=== PATIENT | male | born 1960 | race Caucasian/White ===

== ENCOUNTER → 2018-03-16 | Outpatient (CLI) | payer BC ==
[2018-03-16 15:32] LABS: HCT 44.9 % (39.0-53.0); HGB 15.1 gm/dL (13.0-17.5); MCH 29.7 pg (25.0-35.0); MCHC 33.6 g/dL (31.0-37.0); MCV 88.5 fL (80.0-100.0); Mean Platelet Volume 6.6; Platelet Count 273 k/uL (150-450); RBC 5.07 m/uL (4.30-5.90); RDW 13.1 % (11.5-15.5); WBC 8.4 k/uL (3.8-10.6)
[2018-03-16 15:33] LABS: Appearance,Urine Clear (Clear); Bilirubin,Urine Negative (Negative); Blood,Urine Negative (Negative); Color,Urine Yellow; Glucose,Urine (UA) Negative (Negative); Ketones,Urine Negative (Negative); Leukocyte Esterase,Urine Negative (Negative); Nitrite,Urine Negative (Negative); PH, Urine 5.5 (5.0-8.0); Protein,Urine Negative (Negative); Specific Gravity,Urine 1.022 (1.001-1.035); Urobilinogen,Urine <2.0 mg/dL (<2.0)
[2018-03-16 15:37] LABS: Partial Thromboplastin Time 23.6 sec (22.0-30.0); Prothrombin Time 9.9 sec (9.0-12.0)
[2018-03-16 15:55] LABS: ALT 33 U/L (21-72); AST 25 U/L (17-59); Albumin 4.1 g/dL (3.5-5.0); Alkaline Phosphatase 78 U/L (38-126); Anion Gap 11 mmol/L; Blood Urea Nitrogen 21 mg/dL (9-20); Calcium 9.4 mg/dL (8.4-10.2); Carbon Dioxide 30 mmol/L (22-30); Chloride 102 mmol/L (98-107); Glucose 135 mg/dL (74-99); Potassium 3.9 mmol/L (3.5-5.1); Sodium 143 mmol/L (137-145); Total Bilirubin 0.4 mg/dL (0.2-1.3); Total Protein 7.2 g/dL (6.3-8.2)
== END | disposition home or self-care (01) ==
LOC: LABPAT 14:20
PROVIDERS: ATTEND Orthopaedic Surgery
DX: Z01.812 Encounter for preprocedural laboratory examination (principal)
CPT/HCPCS: 36415; 80053; 81003; 85027; 85610; 85730; 87070

== ENCOUNTER 2018-04-05 05:37 | Inpatient (IN) | payer BC ==
[2018-03-30 12:14] VITALS: BMI 41.3
[~2018-04-05 05:37] MED LIST: ACETAMINOPHEN TAB 500 MG TAB PO ONE; ONDANSETRON 4 MG/2 ML VIAL IVP ONE; TRANEXAMIC ACID 1,000 MG in SODIUM CHLORIDE 0.9% 50 ML IVPB ONE; VANCOMYCIN 2,000 MG in SODIUM CHLORIDE 0.9% 500 ML 500 ML IVPB ONE
[2018-04-05] MEDS ORDERED: MIDAZOLAM 2 MG/2 ML VIAL IV PRN (05:55)
[2018-04-05] MEDS ORDERED: SCOPOLAMINE 1.5MG/72HR PATCH TRANSDERM ONE (05:55)
[2018-04-05] MEDS ORDERED: DEXAMETHASONE SOD PHOSPHATE 10 MG/ML 1 ML VIAL IV ONE (05:55)
[2018-04-05] MEDS ORDERED: LACTATED RINGERS 1,000 ML IV SCH (05:55)
[2018-04-05 06:18] VITALS: RESP 16
[2018-04-05] MEDS ORDERED: LIDOCAINE 1% 20 ML VIAL (10MG/ML) FOR IV START INTRADERMA ONE (06:27)
[2018-04-05] MEDS ORDERED: ROPIVACAINE 246.25 MG, EPINEPHrine 0.5 MG, KETOROLAC 30 MG, cloNIDine HCL/PF 80 MCG, WA... MISCELLANE ONE ×5 (09:01)
[2018-04-05] MEDS ORDERED: fentaNYL (PF) 50 MCG/ML 2 ML AMP ONE (09:05)
[2018-04-05] MEDS ORDERED: PROPOFOL 10 MG/ML 20 ML VIAL IV ONE (09:05)
[2018-04-05] MEDS ORDERED: SODIUM CHLORIDE 0.9% 100 ML BAG ONE (09:05)
[2018-04-05] MEDS ORDERED: MIDAZOLAM 2 MG/2 ML VIAL ONE (09:05)
[2018-04-05] MEDS ORDERED: TRANEXAMIC ACID 1,000 MG/10 ML VIAL ONE (09:05)
[2018-04-05] MEDS ORDERED: ceFAZolin 3,000 MG in SODIUM CHLORIDE 0.9% IRRIGATIO 3,000 ML IRRIGATION ONE (09:15)
--- NOTE | 2018-04-05 11:11 | P.OP ---
Date of Procedure: 04/05/18 Procedure(s) Performed: PREOPERATIVE DIAGNOSIS: Right knee severe osteoarthritis with mild genu varum POSTOPERATIVE DIAGNOSIS: Right knee severe osteoarthritis with mild genu varum OPERATION: Right knee cemented total replacement arthroplasty. ANESTHESIA: Spinal ESTIMATED BLOOD LOSS: 100 ml. MAIL TRUCK DRIVER: Stefanie Toledo PA-C (assistance with: patient positioning, retraction, exposure, hemostasis, leg positioning, implantation, irrigation, closure, dressing) COMPLICATIONS: None apparent. COMPONENTS IMPLANTED: Persona system from [employer] INDICATIONS: Mr. Coley is a 57-year-old male with a history of right knee osteoarthritis. The patient's knee is end-stage, and conservative management has failed. The operation of knee replacement has been discussed at length in the office, as well as potential risks and complications. These are inclusive of, but not limited to: bleeding, infection, scarring, discomfort, blood vessel and nerve damage, need for further surgery, failure to relieve symptoms, persistence, recurrence, or worsening of problems, loosening, dislocation, wear , blood clot, pulmonary embolism, , gait dysfunction, stiffness, and other risks as discussed in the office. The patient elects to proceed and the consent form has been signed. PROCEDURE: The patient was taken to the operating room and positioned on the operating room table in the supine position. Anesthesia was initiated. Care was taken to make sure that all pressure points were adequately padded. The operative lower extremity was prepped and draped in the usual aseptic fashion using ChloraPrep. Ioban drape was used for the case and the patient received intravenous antibiotics within one hour of the incision. A pneumotourniquet and leg varela were used for the case. The limb was exsanguinated with an Esmarch bandage and the tourniquet was inflated to 350 mmHg. Time-out was called confirming the patient's identity, side, procedure and administration of antibiotics and tranexamic acid. The patient had a history of MRSA previous infection and therefore vancomycin infusion was started 2 hours prior to the procedure. The incision was then created midline directly over the knee, carried down through skin and into the subcutaneous tissues and down to fascia. Full thickness subcutaneous medial flap was developed. Medial parapatellar arthrotomy was performed and the interior of the knee was inspected. There was end-stage osteoarthritis of the knee with a mild to moderate genu varum type deformity. The fat pad was excised and proximal medial release on the tibia was completed using meticulous dissection and a curved osteotome. The anterior cruciate ligament was taken down. Note was made of significant attrition of the anterior and significant degenerative appearance of the cruciate ligaments. The exposure was excellent. The knee was flexed 90 degrees and the patella was subluxed and retracted laterally. A spot was chosen on the femur approximately 1 cm anterior to the posterior cruciate ligament insertion and an intramedullary hole was created within the femur. The intramedullary guide was then set to 5 degrees of valgus. The distal cutting block was attached and pinned into position. An appropriate amount of distal femoral resection was set. The oscillating saw was then used to make the distal femoral cut. This cut was confirmed to be flat with the flat end of an osteotome. The retractors were placed around the tibia and the tibial surface was addressed. The angle and depth of resection was adjusted using an extramedullary cutting guide. The guide had a built-in 3 degree posterior slope cut. Once the cutting guide was adjusted appropriately and in line with the axis of the tibia and confirmed to be in good position in relation to the second metatarsal and transmalleolar axis, the tibial cut was then created with protection of the posterior neurovascular structures and the collateral ligaments. The tibial cut surface was removed and sized. Femoral sizing was then accomplished using anterior referencing. Care was taken to analyze the posterior condyles for signs of deficiency or severe wear, and adjustments to the guide were made, as appropriate. 3 degree external rotation pins were placed. The cutting jig for the femur was applied to these pins. The planned cuts were further analyzed prior to performing them with the oscillating saw. No femoral notching was produced. Bone fragments were removed and the cut surfaces were finished, as necessary, with a reciprocating saw. Spacer block technique was then used to confirm that the flexion and extension gaps were equal. Soft tissue releases and adjustment of the tibial and/or femoral cuts were made, as necessary, until the gaps were equal. This included release of the posterior cruciate ligament, which was excessively tight in this patient. The femur was then further finished for a posterior cruciate ligament substituting component. Patellar resurfacing was performed using a reamer. The size of the required patellar component was estimated and the patellar surface was then reamed down to a residual thickness which would recreate the [place] thickness with the component. The exact placement of the patellar component was adjusted for position based on preoperative x-rays and intraoperative findings. Prior to placing trial components, anesthetic solution consisting of ropivicaine with epinephrine, ketorolac, and clonidine was injected carefully and methodically in a grid pattern using aspiration technique into the soft tissue around the knee circumferentially, starting with the deeper tissues first and progressing to fascia, and then finally the skin/subcutaneous tissue. Particular care was taken when injecting the posterior capsule. The trial components were inserted. The tibial tray was allowed to self center and the patella was noted to track very well. The position of the tibial component was marked and the tibia was then finished for a stemmed tibial component. Antibiotic-containing cement containing tobramycin was mixed on the back table and applied to the final components. Trial components were removed and the cut surfaces of the bone were pulse lavaged thoroughly and dried. Cement was then applied to the tibial surface and pressurized into the surface using finger pressurization technique. The tibial component was then applied and excess cement was removed after it was impacted securely and noted to be flush with the cut surface. In similar fashion, the cement was applied to the cut femoral surface, pressurized in using finger pressurization and the component was impacted into place. Excess cement was removed. The polyethylene spacer was then implanted and locked into position. The patellar component was then applied in similar technique and a patellar clamp was used to hold the patella in place as the cement hardened. Once the cement had fully hardened, the knee was reinspected. Any other cement extrusion was removed and final kinematic testing showed range of motion from 0 to 130 degrees with excellent stability, both medially and laterally and appropriate alignment of the leg. Patellar tracking was excellent. The knee was then thoroughly pulse lavaged with normal saline. The tourniquet was deflated and hemostasis was obtained with electrocautery and IV tranexamic acid, 1 g given at the start of the operation and 1 g at the start of closure. Closure was with #2 Ethibond in the fascia/capsule and supplemented with #2 Quill, 2-0 Vicryl suture was used for the subcutaneous tissues and 3-0 Quill for the skin. Dermabond/Steri-Strips were then applied. A lightly compressive dressing was applied using Webril and an Rogers wrap. The patient was then transferred to stretcher and taken to the recovery room in stable condition. Sponge and needle counts were correct.
[2018-04-05] MEDS ORDERED: MAGNESIUM HYDROXIDE 2,400 MG/10 ML CUP PO PRN (11:32)
[2018-04-05] MEDS ORDERED: NALOXONE 0.4 MG/ML 1 ML VIAL IV PRN (11:32)
[2018-04-05] MEDS ORDERED: BISACODYL 10 MG SUPP RECTAL PRN (11:32)
[2018-04-05] MEDS ORDERED: HYDROmorphone 1 MG/ML 1 ML SYRINGE IVP PRN ×3 (11:32)
[2018-04-05] MEDS ORDERED: TEMAZEPAM 15 MG CAP PO PRN (11:32)
[2018-04-05] MEDS ORDERED: NA PHOS,M-B/NA PHOS,DI-BA 133 ML ENEMA RECTAL PRN (11:32)
[2018-04-05] MEDS ORDERED: DIAZEPAM 5 MG TAB PO PRN (11:32)
[2018-04-05] MEDS: HYDROmorphone 0.5 MG/0.5 ML SYRINGE IVP PRN ×2 (11:40→11:56)
[2018-04-05] MEDS: LACTATED RINGERS 1,000 ML IV SCH ×2 (12:07→23:10)
--- NOTE | 2018-04-05 12:14 | XR ---
Limited right knee HISTORY: Status post right knee arthroplasty 2 views of the right knee. Patient is status post right knee arthroplasty. There is anatomic alignment. Lucency in the soft tiss ues is compatible with postop state. IMPRESSION: Orthopedic follow-up.
[2018-04-05] MEDS: HYDROcodone/APAP 7.5-325MG 1 EACH TAB PO PRN ×2 (15:22→22:43)
[2018-04-05] MEDS ORDERED: ceFAZolin IN SWFI 2 GM/20 ML SYRINGE IVP SCH (16:00)
[2018-04-05] MEDS ORDERED: WARFARIN 7.5 MG TAB PO ONE (18:00)
[2018-04-05] MEDS ORDERED: VANCOMYCIN 2,000 MG in SODIUM CHLORIDE 0.9% 500 ML 500 ML IVPB ONE (18:00)
[2018-04-05] MEDS ORDERED: METOPROLOL TARTRATE 50 MG TAB PO SCH (21:00)
[2018-04-05] MEDS ORDERED: SENNOSIDES-DOCUSATE SODIUM 1 EACH TAB PO SCH (21:00)
[2018-04-05] MEDS: METOPROLOL 100 MG PO SCH (21:05)
--- NOTE | 2018-04-05 23:45 | CONS ---
CONSULTATION DATE OF CONSULTATION: April 05, 2018. REASON FOR CONSULTATION: Medical management requested by Dr. Mancia. CONSULTATION: This is a very pleasant 57-year-old patient of Dr. Gruber. Chronic stable medical conditions include hypertension, obstructive sleep apnea, kidney stones. The patient did undergo right total knee arthroplasty. Pain is controlled with medications. No nausea, vomiting. Denies any cardiac history. Sitting up. No dizziness. No lightheadedness. REVIEW OF SYSTEMS: CONSTITUTIONAL: None. HEENT: None. RESPIRATORY: None. CARDIOVASCULAR: None. GASTROINTESTINAL: None. GENITOURINARY: None. MUSCULOSKELETAL: Arthritic pain in many joints. DERMATOLOGICAL: None. HEMATOLOGICAL: None. LYMPHATICS: None. PSYCHIATRIC: None. NEUROLOGICAL: None. PAST MEDICAL HISTORY: Hypertension, osteoarthritis, obstructive sleep apnea uses CPAP, kidney stones. PAST SURGICAL HISTORY: Hernia repair, right knee arthroscopic, right carpal tunnel release, inguinal hernia times two. SOCIAL HISTORY: No smoking. Alcohol occasionally. . 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 FAMILY HISTORY: Skin cancer. HOME MEDICATIONS: 1. Maxzide 37.5/25 1 tablet p.o. daily. 2. Lopressor 200 mg p.o. b.i.d. 3. Prinivil 20 mg p.o. daily. 4. Zyrtec 10 mg p.o. daily. ALLERGIES: None. PHYSICAL EXAMINATION: VITAL SIGNS: Temperature 98.1, pulse 84, respiratory rate 16, blood pressure 145/80, pulse ox 95% on room air. GENERAL APPEARANCE: Well built. BMI 41.3. Sitting up in a chair. Comfortable. EYES: Pupils equal. Conjunctivae normal. HEENT: External appearance of nose and ears normal. Oral cavity normal. NECK: JVD not raised. Mass not palpable. RESPIRATORY: Effort normal. LUNGS are clear. CARDIOVASCULAR: 1st and second sounds normal. No edema. ABDOMEN: Soft, nontender. Liver and spleen not palpable. LYMPHATICS: No lymph nodes palpable in the neck and axilla. PSYCHIATRY: Alert and oriented x3. Mood and affect normal. NEUROLOGICAL: Pupils equal. Cranial nerves grossly intact. Power and sensation grossly intact. MUSCULOSKELETAL: Evidence of osteoarthritis especially in the hands and knees. The right knee in a dressing. INVESTIGATIONS: Blood work from March 16, 2018 shows a white count 8.4, hemoglobin 15.1, platelets 273. Potassium 3.9, BUN 21, creatinine 0.84. ASSESSMENT: 1. Right total knee arthroplasty. 2. Primary osteoarthritis multiple joints bilaterally. 3. Essential hypertension. 4. Obstructive sleep apnea uses CPAP machine. 5. Urolithiasis, currently asymptomatic. 6. Morbid obesity BMI 41.3. PLAN: Home medications are resumed. Patient getting prophylactic IV cefazolin and DVT prophylaxis per Dr. Mancia. The patient should see a dietitian for weight loss measures and should follow up with Dr. Gruber upon discharge. Care was discussed with the patient. Questions were answered. Thank you Dr. Mancia. Copy to Dr. Gruber. MMODL / IJN: [id number] /
[2018-04-06] MEDS: HYDROcodone/APAP 7.5-325MG 1 EACH TAB PO PRN ×3 (05:11→11:14)
[2018-04-06] MEDS: LACTATED RINGERS 1,000 ML IV SCH (05:18)
[2018-04-06] MEDS: METOPROLOL 100 MG PO SCH (07:26)
[2018-04-06 08:10] VITALS: BP 128/61; PULSE 57; TEMP 99
[2018-04-06 08:10] LABS: Basophils % (A) 0 %; Eosinophils % (A) 0 %; HCT 39.7 % (39.0-53.0); Lymphocytes # (A) 1.6 k/uL (1.0-4.8); Lymphocytes % (A) 16 %; MCH 29.2 pg (25.0-35.0); MCHC 32.7 g/dL (31.0-37.0); MCV 89.4 fL (80.0-100.0); Mean Platelet Volume 6.9; Monocytes # (A) 0.7 k/uL (0-1.0); Monocytes % (A) 7 %; Neutrophils # (A) 7.7 k/uL (1.3-7.7); Neutrophils % (A) 75 %; Platelet Count 222 k/uL (150-450); RBC 4.44 m/uL (4.30-5.90); RDW 13.1 % (11.5-15.5); WBC 10.2 k/uL (3.8-10.6)
[2018-04-06 08:21] LABS: INR 1.6 (<1.2); Prothrombin Time 15.2 sec (9.0-12.0)
[2018-04-06] MEDS ORDERED: TRIAMTERENE PO SCH (09:00)
[2018-04-06] MEDS ORDERED: LISINOPRIL 20 MG TAB PO SCH (09:00)
[2018-04-06] MEDS ORDERED: HCTZ PO SCH (09:00)
[2018-04-06] MEDS ORDERED: CETIRIZINE 10 MG PO SCH (09:00)
[2018-04-06] MEDS ORDERED: TRIAMTERENE-HCTZ 37.5-25MG 1 EACH TAB PO SCH (09:00)
[2018-04-06] MEDS ORDERED: MELOXICAM 7.5 MG TAB PO SCH (09:00)
[2018-04-06] MEDS ORDERED: LISINOPRIL 20 MG PO SCH (09:00)
--- NOTE | 2018-04-06 09:25 | P.DS ---
Providers Date of admission: 04/05/18 05:37 Expected date of discharge: 04/06/18 Attending physician: Damon Mancia Consults: 04/05/18 15:55 Consult Physician Urgent Consulting Provider: Moose Barajas Consult Reason/Comments: Medical management Do you want consulting provider notified?: Yes Primary care physician: Amos Gruber - Discharge Diagnosis(es) (1) Degenerative arthritis of right knee Current Visit: Yes Status: Acute (2) Status post total right knee replacement Current Visit: Yes Status: Acute Hospital Course: This is a 57-year-old male who was last seen with complaint of continued right knee pain. The patient has a known history of degenerative arthritis of the right knee and presents to discuss surgical options. After discussion and consideration the patient elects to proceed with total right knee arthroplasty. The patient is seen preoperatively by his primary care physician and cleared for surgery. The patient is admitted to [facility] for total right knee arthroplasty. The procedures performed without complication or sequelae. Patient is doing well postoperatively. Vital signs are stable at discharge. Labs are stable at discharge. the patient is ambulating well with walker with minimal assistance. The patient is discharged to home on postop day #1 pending medical clearance. Please see orders and refer to the [facility] rec for accurate list of medications. Patient Condition at Discharge: Good Plan - Discharge Summary Discharge Rx Participant: Yes New Discharge Prescriptions: New HYDROcodone/APAP 7.5-325MG [Delta 7.5-325] 1 - 2 tab PO Q4-6H PRN #50 tab PRN Reason: Pain Sennosides-Docusate Sodium [Senokot-S] 1 tab PO BID #60 tablet Warfarin [Coumadin] 2.5 mg PO DAILY #1 tab No Action Metoprolol Tartrate [Lopressor] 100 mg PO BID Triamterene-Hctz 37.5-25Mg [Maxzide-25] 1 tab PO DAILY Lisinopril [Prinivil] 20 mg PO DAILY Cetirizine HCl [Zyrtec] 10 mg PO DAILY Discharge Medication List Lisinopril [Prinivil] 20 mg PO DAILY 03/07/15 [History] Metoprolol Tartrate [Lopressor] 100 mg PO BID 03/07/15 [History] Triamterene-Hctz 37.5-25Mg [Maxzide-25] 1 tab PO DAILY 03/07/15 [History] Cetirizine HCl [Zyrtec] 10 mg PO DAILY 03/30/18 [History] HYDROcodone/APAP 7.5-325MG [Delta 7.5-325] 1 - 2 tab PO Q4-6H PRN #50 tab [Rx] Sennosides-Docusate Sodium [Senokot-S] 1 tab PO BID #60 tablet 04/06/18 [Rx] Warfarin [Coumadin] 2.5 mg PO DAILY #1 tab 04/06/18 [Rx] Follow up Appointment(s)/Referral(s): Stefanie Toledo, PAC [PHYSICIAN [employer]OTWE[employer] SALES REPRESENTATIVE] - 2 Weeks Ambulatory/Diagnostic Orders: Continuous Passive Motion (CPM) Machine [DME.AMB1] Time Frame: 3 Weeks, Facility : [facility], Location: Case Management Prothrombin Time INR [LAB.AMB] Location: None Selected Activity/Diet/Wound Care/Special Instructions: May bear wt as tolerated with walker. May shower if no drainage from incision. CPM 5-6h daily. Discharge Disposition: HOME WITH HOME HEALTH SERVICES
[2018-04-06] MEDS ORDERED: WARFARIN 5 MG TAB PO ONE (18:00)
== END 2018-04-06 14:12 | disposition home health service (06) | DRG 470 ==
LOC: 2ORMAIN 05:37 → 4SSUR 11:42
PROVIDERS: ADMIT Orthopaedic Surgery; ATTEND Orthopaedic Surgery
PROC: 0SRC0J9 Replacement of Right Knee Joint with Synthetic Substitute, Cemented, Open Approach (ICD-10-PCS; principal; 2018-04-05 09:00)
DX: M17.11 Unilateral primary osteoarthritis, right knee (principal); Z68.41 Body mass index [BMI] 40.0-44.9, adult; E66.01 Morbid (severe) obesity due to excess calories; G47.33 Obstructive sleep apnea (adult) (pediatric); I10 Essential (primary) hypertension; M21.161 Varus deformity, not elsewhere classified, right knee; N20.0 Calculus of kidney; Z80.8 Family history of malignant neoplasm of other organs or systems; Z86.14 Personal history of Methicillin resistant Staphylococcus aureus infection; Z87.442 Personal history of urinary calculi; Z79.899 Other long term (current) drug therapy; Z71.3 Dietary counseling and surveillance
CPT/HCPCS: 85025; 85610; 88300

== ENCOUNTER → 2018-04-15 | Outpatient (CLI) | payer BC ==
--- NOTE | 2018-04-15 10:55 | US ---
EXAMINATION TYPE: US venous doppler duplex LE RT DATE OF EXAM: 04/15/2018 10:46 AM COMPARISON: NONE CLINICAL HISTORY: I80.9,Phlebitis and thrombophlebitis. SIDE PERFORMED:Right Patient of large body habitus TECHNIQUE: The lower extremity deep venous system is examined utilizing real time linear array sonog perez with graded compression, doppler sonography and color-flow sonography. VESSELS IMAGED: External Iliac Vein (EIV) Common Femoral Vein Deep Femoral Vein Greater Saphenous Vein * Femoral Vein Popliteal Vein Small Saphenous Vein * Proximal Calf Veins (* superficial vessels) Right Leg: Negative for DVT PTV's and GSV also scanned per order. Results phoned to Ashly at office at 10:49 immediately following exam Grayscale, color doppler, spectral doppler imaging performed of the deep veins of the right lower ext remity. There is normal flow, compressibility, vascular waveforms. IMPRESSION: No ultrasound evidence for acute deep or superficial vein thrombus in the right lower ex tremity.
[2018-04-15 12:22] LABS: INR 1.1 (<1.2); Prothrombin Time 10.5 sec (9.0-12.0)
== END | disposition home or self-care (01) ==
LOC: RADUSWWP 10:11
PROVIDERS: ATTEND Orthopaedic Surgery
DX: M25.561 Pain in right knee (principal); M17.11 Unilateral primary osteoarthritis, right knee; M23.331 Other meniscus derangements, other medial meniscus, right knee; E66.9 Obesity, unspecified; Z96.651 Presence of right artificial knee joint
CPT/HCPCS: 85610

== ENCOUNTER → 2018-06-14 | Outpatient (CLI) | payer BC ==
--- NOTE | 2018-06-14 16:09 | XR ---
Right foot HISTORY: Pain and infection right great toe 3 views of the right foot 4 images No comparisons Soft tissue swelling may be present at the first digit, there is degenerative change at the interphal angeal joint, metatarsophalangeal joint of the first digit of the right foot. No evident periosteal r eaction to suggest osteomyelitis. Alignment and bone mineralization are maintained. Enthesophyte pres ent at the insertion of the Achilles tendon. IMPRESSION: Correlate for cellulitis. Osteoarthritis. Follow-up as indicated.
== END | disposition home or self-care (01) ==
LOC: RADXRMAIN 15:28
PROVIDERS: ATTEND Internal Medicine Infectious Disease
DX: M19.071 Primary osteoarthritis, right ankle and foot (principal)

== ENCOUNTER 2019-07-10 23:42 | Emergency (ER) | payer BC, OTHER ==
[2019-07-11 00:11] VITALS: TEMP 98
--- NOTE | 2019-07-11 00:44 | XR ---
EXAMINATION TYPE: XR chest 1V portable DATE OF EXAM: 07/11/2019 COMPARISON: NONE HISTORY: Chest pain TECHNIQUE: Single view FINDINGS: Heart and mediastinum are normal. Lungs are clear of infiltrate. There is no pleural effusi on. Bony thorax is intact. IMPRESSION: No active cardiopulmonary disease. Normal heart.
--- NOTE | 2019-07-11 00:48 | XR ---
EXAMINATION TYPE: XR pelvis AP view DATE OF EXAM: 07/11/2019 COMPARISON: NONE HISTORY: Pain TECHNIQUE: Single view FINDINGS: Pelvic ring is intact. Proximal femurs are intact. There is mild acetabular spurring. Sacro iliac joints are intact. There are numerous phleboliths in the pelvis. IMPRESSION: Mild spurring at the hip joints. No fracture seen.
[2019-07-11 00:53] LABS: Appearance,Urine Clear (Clear); Bilirubin,Urine Negative (Negative); Blood,Urine Negative (Negative); Color,Urine Light Yellow; Glucose,Urine (UA) Negative (Negative); Ketones,Urine Negative (Negative); Leukocyte Esterase,Urine Negative (Negative); Nitrite,Urine Negative (Negative); Protein,Urine Negative (Negative); Urobilinogen,Urine <2.0 mg/dL (<2.0)
[2019-07-11 00:55] LABS: Basophils # (A) 0.2 k/uL (0-0.2); Basophils % (A) 2 %; Eosinophils # (A) 0.2 k/uL (0-0.7); Eosinophils % (A) 2 %; HCT 49.2 % (39.0-53.0); HGB 15.9 gm/dL (13.0-17.5); Lymphocytes # (A) 1.2 k/uL (1.0-4.8); Lymphocytes % (A) 14 %; MCHC 32.3 g/dL (31.0-37.0); MCV 86.4 fL (80.0-100.0); Mean Platelet Volume 6.6; Monocytes # (A) 0.6 k/uL (0-1.0); Monocytes % (A) 7 %; Neutrophils # (A) 6.3 k/uL (1.3-7.7); Neutrophils % (A) 74 %; Platelet Count 377 k/uL (150-450); RBC 5.69 m/uL (4.30-5.90); RDW 13.4 % (11.5-15.5); WBC 8.6 k/uL (3.8-10.6)
[2019-07-11 01:04] LABS: ALT 34 U/L (4-49); AST 37 U/L (17-59); African American GFR (CKD) >90 (>60 ml/min/1.73 sqM); Albumin 4.3 g/dL (3.5-5.0); Alkaline Phosphatase 103 U/L (38-126); Anion Gap 8 mmol/L; Blood Urea Nitrogen 13 mg/dL (9-20); Calcium 9.3 mg/dL (8.4-10.2); Carbon Dioxide 32 mmol/L (22-30); Chloride 101 mmol/L (98-107); Glucose 159 mg/dL (74-99); Non-African American GFR(CKD) >90 (>60 ml/min/1.73 sqM); Potassium 4.5 mmol/L (3.5-5.1); Sodium 141 mmol/L (137-145); Total Bilirubin 0.4 mg/dL (0.2-1.3); Total Protein 7.8 g/dL (6.3-8.2)
[2019-07-11 01:12] LABS: INR 1.3 (<1.2); Prothrombin Time 12.9 sec (9.0-12.0)
[2019-07-11 01:13] LABS: Partial Thromboplastin Time 19.6 sec (22.0-30.0)
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
[2019-07-11] MEDS ORDERED: MORPHINE SULFATE 4 MG/ML SYRINGE IVP STA (01:20)
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
[2019-07-11] MEDS ORDERED: KETOROLAC 30 MG/ML 1 ML VIAL IVP STA (02:01)
[2019-07-11] MEDS ORDERED: ORPHENADRINE 30 MG/ML 2 ML VIAL IM STA (02:01)
[2019-07-11 03:24] VITALS: BP 151/79; PULSE 55; RESP 20
== END 2019-07-11 03:36 | disposition home or self-care (01) ==
LOC: EC 23:42
DX: M54.2 Cervicalgia (principal); M25.511 Pain in right shoulder; M25.512 Pain in left shoulder; M54.6 Pain in thoracic spine; R51 Headache; R01.1 Cardiac murmur, unspecified; I48.91 Unspecified atrial fibrillation; I10 Essential (primary) hypertension; G47.30 Sleep apnea, unspecified; Z88.2 Allergy status to sulfonamides; Z79.01 Long term (current) use of anticoagulants; Z79.899 Other long term (current) drug therapy; Z99.89 Dependence on other enabling machines and devices; V59.59XA Passenger in pick-up truck or van injured in collision with other motor vehicles in traffic accident, initial encounter; Y92.410 Unspecified street and highway as the place of occurrence of the external cause
CPT/HCPCS: 36415; 93005; 86900; 86901; 80053; 84484; 85025; 85610; 85730; 86850; 81003; 72170; 71045; 72125; 70450; 71260; 74177; 99285; 96374; 96375; 96372; J2270; J2360; J1885; Q9967

== ENCOUNTER 2020-09-18 05:36 | Day surgery (SDC) | payer BC, OTHER ==
[2020-09-12 11:14] VITALS: BMI 44.3
[~2020-09-18 05:36] MED LIST changes: -ACETAMINOPHEN TAB 500 MG TAB PO ONE; +DEXAMETHASONE SOD PHOSPHATE 4 MG/ML 1 ML VIAL IV ONE; +LACTATED RINGERS 1,000 ML IV SCH; +LIDOCAINE 1% (10MG/ML) FOR IV START INTRADERMA PRN; +MIDAZOLAM 2 MG/2 ML VIAL IV PRN; +Pre Op ABX Message 1 EACH MISC MISCELLANE ONE; -TRANEXAMIC ACID 1,000 MG in SODIUM CHLORIDE 0.9% 50 ML IVPB ONE; -VANCOMYCIN 2,000 MG in SODIUM CHLORIDE 0.9% 500 ML 500 ML IVPB ONE; +ceFAZolin 3 GM in SODIUM CHLORIDE 0.9% 100 ML IVPB PRN
[2020-09-18 06:48] LABS: Basophils % (A) 0 %; Eosinophils # (A) 0.2 k/uL (0-0.7); Eosinophils % (A) 2 %; HCT 44.4 % (39.0-53.0); HGB 15.4 gm/dL (13.0-17.5); Lymphocytes % (A) 21 %; MCH 29.7 pg (25.0-35.0); MCHC 34.8 g/dL (31.0-37.0); MCV 85.3 fL (80.0-100.0); Mean Platelet Volume 7.2; Monocytes # (A) 0.8 k/uL (0-1.0); Monocytes % (A) 8 %; Neutrophils # (A) 6.4 k/uL (1.3-7.7); Neutrophils % (A) 67 %; Platelet Count 248 k/uL (150-450); RBC 5.21 m/uL (4.30-5.90); RDW 13.3 % (11.5-15.5); WBC 9.6 k/uL (3.8-10.6)
[2020-09-18] MEDS ORDERED: ePHEDrine SULFATE/0.9% NACL/PF 50 MG/5 ML SYRINGE IV ONE (06:53)
[2020-09-18] MEDS ORDERED: fentaNYL (PF) 50 MCG/ML 2 ML AMP ONE (06:53)
[2020-09-18] MEDS ORDERED: MIDAZOLAM 2 MG/2 ML VIAL ONE (06:53)
[2020-09-18] MEDS ORDERED: PROPOFOL 10 MG/ML 20 ML VIAL IV ONE (06:53)
[2020-09-18] MEDS ORDERED: LIDOCAINE 1% INJ 10MG/ML (20 ML MDV) ONE (06:53)
[2020-09-18] MEDS ORDERED: SUCCINYLCHOLINE CHLORIDE VIAL 200 MG/10 ML VIAL IV ONE (06:53)
[2020-09-18] MEDS ORDERED: BUPIVACAINE (PF) 0.5% 30 ML VIAL INTRAARTIC ONE (06:57)
[2020-09-18] MEDS ORDERED: HYDROmorphone 0.5 MG/0.5 ML SYRINGE IVP PRN (07:00)
[2020-09-18] MEDS ORDERED: KETOROLAC 15 MG/ML 1 ML VIAL IVP ONE (07:48)
[2020-09-18 08:01] VITALS: TEMP 97.7
[2020-09-18 08:46] VITALS: RESP 18
[2020-09-18] MEDS ORDERED: HYDROcodone/APAP 7.5-325MG 1 EACH TAB ONE (08:59)
[2020-09-18] MEDS ORDERED: HYDROcodone/APAP 7.5-325MG 1 EACH TAB PO ONE (09:00)
--- NOTE | 2020-09-18 09:02 | P.OP ---
Date of Procedure: 09/18/20 Preoperative Diagnosis: Torn medial meniscus left knee Postoperative Diagnosis: 1. Torn medial meniscus left knee 2. 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 Synovitis Procedure(s) Performed: 1. Arthroscopy of the left knee with partial medial meniscectomy (15% of the meniscus excised) 2. Chondroplasty of the medial femoral and patellofemoral compartments 3. Partial synovectomy of the medial femoral, lateral femoral, and patellofemoral compartments Anesthesia: GETA Surgeon: Robbie Hilario Estimated Blood Loss (ml): 5 Pathology: none sent Condition: stable Disposition: PACU Indications for Procedure: This is a 60-year-old gentleman that presented to my office with pain in his left knee. An MRI demonstrated torn medial meniscus and after discussing the surgical and nonsurgical treatment options with him at length he wishes to proce ed with arthroscopic debridement of his left knee and informed consent was obtained. Operative Findings: The operative findings are consistent with a torn medial meniscus, grade 2 chondromalacia of the medial and patellofemoral compartments, and synovitis. Description of Procedure: Patient was seen and evaluated in the preoperative area, the operative site was marked with a skin marker. The patient was then brought to the operating room and given 2 g of Ancef intravenously. A general anesthetic was administered by the anesthesia department. Tourniquet was placed on the left upper thigh and the left lower extremity was then prepped and draped in usual sterile fashion. A universal timeout was then performed confirming the patient's name, surgical site, ALLERGIES, and consent. The limb was then exsanguinated and tourniquet insufflated to 350 mmHg. Standard inferior medial and inferior lateral portals were established in the knee. The trochar was inserted in the inferolateral portal. Examination began at the patellofemoral joint. There is noted to be grade 2 chondral malacia the patellofemoral compartment and a moderate amount of synovitis. Next the medial compartment was visualized. There was a tear of the posterior horn of the medial meniscus. There was grade 2 chondral malacia the mediofemoral compartment and synovitis. The notch area was then visualized and the ACL was intact. The Lateral compartment was then visualized and the lateral meniscus was found to be intact, there was no evidence of chondromalacia, but a mild amount of synovitis. Next, using an arthroscopic shaver and a biter, partial medial meniscectomy was performed stable margins. Approximately 15% of the meniscus was excised. A par tial synovectomy is performed the medial femoral, lateral femoral, patellofemoral compartments. Chondroplasty was also performed of the medial femoral and patellofemoral compartments of the knee. Knee was then copiously irrigated, instruments removed, incisions were closed with 4-0 nylon. 30 mL of quarter percent plain Marcaine were injected sterilely into the surgical area. A sterile dressing was then applied, and the tourniquet was released. Patient was then transferred to recovery room in stable condition.
[2020-09-18 09:51] LABS: Glucose,Whole Blood 218 mg/dL (75-99)
[2020-09-18 09:56] VITALS: BP 159/74; PULSE 54
== END 2020-09-18 10:30 | disposition home or self-care (01) ==
LOC: OR 05:36
PROVIDERS: ATTEND Orthopaedic Surgery
DX: M23.204 Derangement of unspecified medial meniscus due to old tear or injury, left knee (principal); M22.42 Chondromalacia patellae, left knee; M65.9 Synovitis and tenosynovitis, unspecified; I10 Essential (primary) hypertension; E78.5 Hyperlipidemia, unspecified; R00.2 Palpitations; H91.90 Unspecified hearing loss, unspecified ear; I48.91 Unspecified atrial fibrillation; Z97.3 Presence of spectacles and contact lenses; R63.5 Abnormal weight gain; Z98.890 Other specified postprocedural states; Z82.49 Family history of ischemic heart disease and other diseases of the circulatory system; Z79.01 Long term (current) use of anticoagulants; Z79.899 Other long term (current) drug therapy; J45.909 Unspecified asthma, uncomplicated; G47.33 Obstructive sleep apnea (adult) (pediatric); Z99.89 Dependence on other enabling machines and devices; Z79.51 Long term (current) use of inhaled steroids; Z88.2 Allergy status to sulfonamides
CPT/HCPCS: 85025; 29881; J2250; J0330; J1100; J0690; J2405; J2001; J3010; J1885; J2704; J1170

== ENCOUNTER → 2020-11-16 | Outpatient (CLI) | payer BC ==
--- NOTE | 2020-11-17 14:03 | CT ---
EXAMINATION TYPE: CT abdomen pelvis wo con DATE OF EXAM: 11/16/2020 COMPARISON: 07/11/2019 INDICATION: chronic gross hematuria DLP: 2313.6 mGycm, Automated exposure control for dose reduction was used. CONTRAST: 0 mL of Isovue 300. Study performed without Oral Contrast TECHNIQUE: Axial images were obtained from above the diaphragm to the pubic rami in the axial plane a t 5 mm thick sections. Reconstructed images are reviewed on the computer in the coronal plane. FINDINGS: Limited CT sections are obtained the lung bases. The lung bases are clear. CT ABDOMEN: Liver: Normal Spleen: Normal Pancreas: Normal Adrenal glands: The adrenal glands are normal. Gallbladder: Normal Kidneys: No discrete masses are evident. Some fullness of the anterior upper left kidney appears to b e related to lobation and is stable from the 2019 exam.. No hydronephrosis is present. There is a 4 .5 cm cyst in the mid right kidney measuring 11 cm Hounsfield units. Punctate nonobstructing renal st ones are at the mid to inferior pole right kidney. There is a 1.3 x 1.0 cm nonobstructing right renal pelvic calcification. Malrotation of the right kidney is noted. No hydroureter is evident Delayed i mages were obtained through the kidneys, which remain unremarkable. Aorta: Vascular calcification is within the aorta. Inferior vena cava: Normal. CT PELVIS: Loops of bowel within the abdomen and pelvis are normal. The study is bilateral contrast limiting bowel evaluation. Appendix: Normal as visualized. Urinary bladder: Incompletely distended but otherwise grossly normal. Genitourinary structures: Prostate appears normal contains calcification. Osseous structures: No suspicious lytic or sclerotic lesions. Appears to be a bone island within the right hip. IMPRESSIONS: 1. Interval development of a nonobstructing 1.3 x 1.0 cm right renal pelvic stone. 2. Otherwise essentially stable appearance CT Abdomen Pelvis without contrast.
== END | disposition home or self-care (01) ==
LOC: RADCTMAIN 09:57
PROVIDERS: ATTEND Urology
DX: N20.0 Calculus of kidney (principal)
CPT/HCPCS: 74176

== ENCOUNTER → 2020-12-26 | Outpatient (CLI) | payer BC ==
[2020-12-26 09:27] LABS: Basophils # (A) 0.1 k/uL (0-0.2); Basophils % (A) 1 %; Eosinophils # (A) 0.2 k/uL (0-0.7); Eosinophils % (A) 2 %; HCT 45.7 % (39.0-53.0); HGB 15.2 gm/dL (13.0-17.5); Lymphocytes % (A) 20 %; MCH 29.4 pg (25.0-35.0); MCHC 33.3 g/dL (31.0-37.0); MCV 88.5 fL (80.0-100.0); Mean Platelet Volume 7.5; Monocytes # (A) 0.6 k/uL (0-1.0); Monocytes % (A) 6 %; Neutrophils % (A) 70 %; Platelet Count 306 k/uL (150-450); RBC 5.16 m/uL (4.30-5.90); RDW 13.3 % (11.5-15.5)
[2020-12-26 09:32] LABS: ALT 35 U/L (4-49); AST 42 U/L (17-59); African American GFR (CKD) >90 (>60 ml/min/1.73 sqM); Albumin 4.4 g/dL (3.5-5.0); Alkaline Phosphatase 102 U/L (38-126); Anion Gap 9 mmol/L; Blood Urea Nitrogen 14 mg/dL (9-20); Calcium 10.1 mg/dL (8.4-10.2); Carbon Dioxide 30 mmol/L (22-30); Chloride 100 mmol/L (98-107); Glucose 128 mg/dL (74-99); Non-African American GFR(CKD) >90 (>60 ml/min/1.73 sqM); Potassium 4.2 mmol/L (3.5-5.1); Sodium 139 mmol/L (137-145); Total Bilirubin 0.4 mg/dL (0.2-1.3); Total Protein 7.2 g/dL (6.3-8.2)
[2020-12-26 09:39] LABS: Appearance,Urine Clear (Clear); Bilirubin,Urine Negative (Negative); Blood,Urine Large (Negative); Color,Urine Yellow; Glucose,Urine (UA) Negative (Negative); Ketones,Urine Negative (Negative); Leukocyte Esterase,Urine Negative (Negative); Nitrite,Urine Negative (Negative); PH, Urine 6.5 (5.0-8.0); Protein,Urine Negative (Negative); RBC,Urine >182 /hpf (0-5); Specific Gravity,Urine 1.015 (1.001-1.035); Urobilinogen,Urine <2.0 mg/dL (<2.0); WBC,Urine 2 /hpf (0-5)
== END | disposition home or self-care (01) ==
LOC: LABPAT 08:18
PROVIDERS: ATTEND Urology
DX: Z01.812 Encounter for preprocedural laboratory examination (principal); E11.9 Type 2 diabetes mellitus without complications; N20.0 Calculus of kidney; R31.29 Other microscopic hematuria
CPT/HCPCS: 36415; 80053; 81001; 85025; 87086

== ENCOUNTER 2021-01-02 07:25 | Day surgery (SDC) | payer BC ==
[2020-12-28 13:49] VITALS: BMI 43.5
--- NOTE | 2021-01-01 19:14 | P.GSHP ---
History of Present Illness H&P Date: 01/01/21 60 yo male with a painful 15 mm dense right renal pelvic stone who comes for a right pcnl The alternative treatments have been discussed. The risks including infection, bleeding, injury to adjacent organs, failure, damage to the kidney among others have been explained understood and accepted - Constitutional Constitutional: Denies chills, Denies fever - EENT Eyes: denies blurred vision, denies pain Ears, nose, mouth and throat: Denies headache, Denies sore throat - Cardiovascular Cardiovascular: Denies chest pain, Denies shortness of breath - Respiratory Respiratory: Denies cough, Denies 7 - Gastrointestinal Gastrointestinal: Denies abdominal pain, Denies diarrhea, Denies nausea, Denies vomiting - Genitourinary (Female) Genitourinary: Denies dysuria, Denies hematuria - Genitourinary (Male) Genitourinary: Denies dysuria, Denies hematuria - Musculoskeletal Musculoskeletal: Denies myalgias - Integumentary Integumentary: Denies pruritus, Denies rash - Neurological Neurological: Denies numbness, Denies weakness - Psychiatric Psychiatric: Denies anxiety, Denies depression - Endocrine Endocrine: Denies fatigue, Denies weight change Past Medical History Past Medical History: Atrial Fibrillation, Asthma, Diabetes Mellitus, Hyperlipidemia, Hypertension, Sleep Apnea/CPAP/BIPAP Additional Past Medical History / Comment(s): hx PVC'S History of Any Multi-Drug Resistant Organisms: MRSA Date of last positivie culture/infection: 2016 MDRO Source:: perineum Past Surgical History: Hernia Repair, Joint Replacement, Orthopedic Surgery Additional Past Surgical History / Comment(s): right knee replacement, armand KNEE ARTHROSCOPIC, RIGHT CARPAL TUNNEL RELEASE, inguinal HERNIA X2, kidney stones, epidurals for back pain Past Anesthesia/Blood Transfusion Reactions: Motion Sickness, Postoperative Nausea & Vomiting (PONV) Smoking Status: Never smoker - Past Family History Father Family Medical History: Cancer Additional Family Medical History / Comment(s): SKIN Mother Family Medical History: Cancer Medications and Allergies Home Medications Medication Instructions Recorded Confirmed Type Metoprolol Tartrate [Lopressor] 100 mg PO BID 03/07/15 12/28/20 History Cetirizine HCl [Zyrtec] 10 mg PO DAILY 03/30/18 12/28/20 History Albuterol Inhaler [Ventolin Hfa 1 puff INHALATION RT-QID PRN 09/12/20 12/28/20 History Inhaler] Apixaban [Eliquis] 5 mg PO BID 09/12/20 12/28/20 History Budesonide-Formot 160-4.5 Mcg 2 puff INHALATION BID 09/12/20 12/28/20 History [Symbicort 160-4.5 Mcg Inhaler] Diltiazem HCl [Cartia Xt] 120 mg PO HS 09/12/20 12/28/20 History Diltiazem HCl [Cartia Xt] 240 mg PO QAM 09/12/20 12/28/20 History Losartan Potassium 50 mg PO QAM 09/12/20 12/28/20 History Propafenone HCl 150 mg PO BID 09/12/20 12/28/20 History Simvastatin [Zocor] 40 mg PO DAILY 09/12/20 12/28/20 History Tiotropium 2.5 Mcg/Puff [Spiriva 1 puff INHALATION HS 09/12/20 12/28/20 History Respimat 2.5 Mcg] HYDROcodone/APAP 7.5-325MG [[place] 1 tab PO Q4-6H PRN #30 tab 09/18/20 12/28/20 Rx 7.5-325] metFORMIN HCL [Glucophage] 500 mg PO BID 12/28/20 12/28/20 History Allergies Allergy/AdvReac Type Severity Reaction Status Date / Time sulfamethoxazole AdvReac Rash/Hives Verified 12/28/20 13:39 [From Bactrim] trimethoprim [From Bactrim] AdvReac Rash/Hives Verified 12/28/20 13:39 Surgical - Exam - General well developed, well nourished, no distress, obese - Eyes PERRL - ENT no hearing loss - Neck trachea midline - Respiratory normal expansion, normal respiratory effort - Cardiovascular Rhythm: regular - Abdomen Abdomen: soft, non tender - Genitourinary normal penis with no external lesions, testicles present - Integumentary no rash - Neurologic normal coordination, normal sensation - Musculoskeletal normal gait, normal posture - Psychiatric oriented to time, oriented to person, oriented to place, speech is normal, memory intact Results - Imaging CT scan - abdomen: report reviewed, image reviewed CT scan - pelvis: report reviewed, image reviewed Assessment and Plan Assessment: Impression: 15 mm dense right renal pelvic stone Plan; right pcnl
[~2021-01-02 07:25] MED LIST changes: +HYDROmorphone 0.5 MG/0.5 ML SYRINGE IVP PRN; +METOCLOPRAMIDE 5 MG/ML 2 ML VIAL IVP PRN; -MIDAZOLAM 2 MG/2 ML VIAL IV PRN; -Pre Op ABX Message 1 EACH MISC MISCELLANE ONE
[2021-01-02 08:32] LABS: Glucose,Whole Blood 131 mg/dL (75-99)
--- NOTE | 2021-01-02 08:48 | XR ---
EXAMINATION TYPE: XR KUB DATE OF EXAM: 01/02/2021 COMPARISON: 03/14/2015 HISTORY: Preop TECHNIQUE: One view abdominal series FINDINGS: The osseous structures are intact. The bowel gas pattern is nonspecific. There is a 1.5 cm calcifica tion the right renal pelvis. Hypertrophic and degenerative changes spine. Arthropathy of the hips wit h hypertrophic changes involving the greater trochanters bilaterally. Numerous calcifications in the pelvis are likely vascular.. IMPRESSION: 1. Nonspecific abdomen. 2. 1.5 cm right renal calculus.
[2021-01-02] MEDS ORDERED: ROCURONIUM 10 MG/ML (5 ML VIAL) IV ONE (08:56)
[2021-01-02] MEDS ORDERED: KETOROLAC 15 MG/ML 1 ML VIAL ONE (08:56)
[2021-01-02] MEDS ORDERED: PROPOFOL 10 MG/ML 20 ML VIAL IV ONE (08:56)
[2021-01-02] MEDS ORDERED: diphenhydrAMINE 50 MG/ML 1 ML VIAL ONE (08:56)
[2021-01-02] MEDS ORDERED: LIDOCAINE 1% INJ 10MG/ML (20 ML MDV) ONE (08:56)
[2021-01-02] MEDS ORDERED: KETAMINE 10 MG/ML 20 ML VIAL ONE (08:56)
[2021-01-02] MEDS ORDERED: SUCCINYLCHOLINE CHLORIDE VIAL 200 MG/10 ML VIAL IV ONE (08:56)
[2021-01-02] MEDS ORDERED: fentaNYL (PF) 50 MCG/ML 2 ML AMP ONE (08:56)
[2021-01-02] MEDS ORDERED: NEOSTIGMINE 1 MG/ML 10 ML VIAL ONE (08:56)
[2021-01-02] MEDS ORDERED: MIDAZOLAM 2 MG/2 ML VIAL ONE (08:56)
[2021-01-02] MEDS ORDERED: GLYCOPYRROLATE 0.2 MG/ML 2 ML VIAL ONE (08:56)
[2021-01-02] MEDS ORDERED: ePHEDrine SULFATE/0.9% NACL/PF 50 MG/5 ML SYRINGE IV ONE (08:56)
[2021-01-02] MEDS ORDERED: IOPAMIDOL-370 50ML BTL MISCELLANE ONE (09:31)
--- NOTE | 2021-01-02 10:54 | P.OP ---
Date of Procedure: 01/02/21 Preoperative Diagnosis: Right renal stone with colic Postoperative Diagnosis: Same Procedure(s) Performed: Cystoscopy, placement of occluding balloon catheter, attempted percutaneous nephrostomy (failed), (Dr. nash). Right ureteroscopy with laser lithotripsy, placement of 12/01 double-J catheter Anesthesia: LIZY Surgeon: Wyatt Villanueva Estimated Blood Loss (ml): 25 Pathology: other (Stone) Condition: stable Disposition: PACU Indications for Procedure: The patient is 60. He is a very dense 15 mm right renal pelvic stone plus some lower pole calyceal stones. He is given treatment options and we have chosen percutaneous nephrostolithotomy. He comes for this procedure. This complications alternatives have been discussed. Description of Procedure: The patient is brought to the operating suite. He is given a general anesthesia on the transport [facility]. Rolls were placed underneath his hips. He's placed in a frog position with sterile prep and drape. Cystoscopy of the Foroblique lens and 21-English sheath identifies a normal urethra. The prostate is not significantly obstructing. The right ureteral orifice is intubated with an 5- English occluding balloon catheter passed up to the renal pelvis. It is secured to a 16-English Powell The patient is placed in a prone position with sterile prep and drape. Dr. Nash of radiology comes in and attempts to perform percutaneous access to the right lower pole calyx. Several attempts are made but due to the patient's size the instruments are not long enough to access the kidney. I thus aborted the percutaneous attempt. The patient is placed back on the transport g[place]. He's been placed back on the operating table in a supine position and then a dorsal lithotomy position with a sterile prep and drape. I repeated the cystoscopy the Foroblique lens and 21-English sheath. Identified the right ureteral orifice and intubated with an 035 wire that passed up into the renal pelvis. Over the wires and passed 44-50-Sqbyak reentry sheath. The inner sheath is removed. I passed the flexible ureteroscope up to the stone. With the 270 laser probe and 8-10 W of energy the stone was broken into very tiny pieces and flushed out of the collecting system. I then pass a scope in the lower pole calyx and identify the stone to fracture. At the end of the procedure there is no significant stones remaining to basket or fracture. I then pass an 035 wire through the reentry sheath into the collecting system. I removed the reentry sheath. The wire is then backloaded onto the cystoscope. I then pass a 6 x 26 double-J catheter that coils in the renal pelvis and the bladder the bladder strain some small fragments of sand are sent to pathology. The patient is awake and returned recovery room good condition Impression failed percutaneous approach to right renal stone removal. Successful ureteroscopic fracture the stone. The patient be discharged home upon recovery with the stent and he'll come to the office in one week for stent removal.
[2021-01-02 10:57] VITALS: TEMP 98
[2021-01-02 11:02] LABS: Glucose,Whole Blood 140 mg/dL (75-99)
[2021-01-02] MEDS ORDERED: HYDROmorphone 0.5 MG/0.5 ML SYRINGE IVP ONE (12:03)
[2021-01-02] MEDS ORDERED: HYDROcodone/APAP 7.5-325MG 1 EACH TAB ONE (12:05)
[2021-01-02] MEDS ORDERED: HYDROcodone/APAP 7.5-325MG 1 EACH TAB PO ONE ×2 (12:20)
[2021-01-02 12:30] VITALS: BP 157/68; PULSE 52; RESP 16
--- NOTE | 2021-01-02 13:08 | FL ---
EXAMINATION TYPE: FL guidance operating room DATE OF EXAM: 01/02/2021 HISTORY: Fluoroscopy time 7 minutes and 46 seconds of fluoroscopy provided. IMPRESSION: 1. Fluoroscopy time.
== END 2021-01-02 13:00 | disposition home or self-care (01) ==
LOC: OR 07:25
PROVIDERS: ATTEND Urology
DX: N20.0 Calculus of kidney (principal); I48.91 Unspecified atrial fibrillation; J45.909 Unspecified asthma, uncomplicated; E11.9 Type 2 diabetes mellitus without complications; E78.5 Hyperlipidemia, unspecified; I10 Essential (primary) hypertension; G47.33 Obstructive sleep apnea (adult) (pediatric); I49.3 Ventricular premature depolarization; Z86.14 Personal history of Methicillin resistant Staphylococcus aureus infection; Z96.651 Presence of right artificial knee joint; Z98.890 Other specified postprocedural states; Z87.442 Personal history of urinary calculi; Z80.8 Family history of malignant neoplasm of other organs or systems; Z79.01 Long term (current) use of anticoagulants; Z79.84 Long term (current) use of oral hypoglycemic drugs; Z79.810 Long term (current) use of selective estrogen receptor modulators (SERMs); Z79.899 Other long term (current) drug therapy; Z88.2 Allergy status to sulfonamides
CPT/HCPCS: 86900; 86901; 86850; 82365; 74018; 52356; C2625; C1758 ×3; C1769 ×6; C2628; C1729 ×4; C1894; J2250; J0330; J1200; J1100; J2710; J0690; J2405; J2001; J3010; J1885; J2704; J1170; Q9967

== ENCOUNTER → 2021-01-23 | Outpatient (CLI) | payer BC ==
--- NOTE | 2021-01-23 09:43 | XR ---
EXAMINATION TYPE: XR KUB DATE OF EXAM: 01/23/2021 COMPARISON: 01/02/2021 HISTORY: Right renal stone TECHNIQUE: One view abdominal series FINDINGS: The osseous structures are intact. The bowel gas pattern is nonspecific. There are 5 lower pole righ t renal calculi the largest measuring 8 mm. No suspicious calcifications overlying the left kidney. Degenerative changes spine and arthropathy of the hips. Calcifications in the pelvis are nonspecific but likely vascular. IMPRESSION: 1. Nonspecific abdomen. 2. Multiple lower pole right renal calculi which appears to be fragmented relative to the prior exam.
== END | disposition home or self-care (01) ==
LOC: RADXRMAIN 09:00
PROVIDERS: ATTEND Urology
DX: N20.0 Calculus of kidney (principal)
CPT/HCPCS: 74018

== ENCOUNTER → 2021-11-28 | Outpatient (CLI) | payer BC ==
--- NOTE | 2021-11-28 15:12 | US ---
EXAMINATION TYPE: US venous doppler duplex LE RT DATE OF EXAM: 11/28/2021 3:03 PM COMPARISON: US 2018 CLINICAL HISTORY: RIGHT LEG PHLEBITIS THROMBOPHLEBITIS I80.9. Pain. Hx joint replacement surgery. No hx of DVT. Patient on eliquis. SIDE PERFORMED: Left TECHNIQUE: The lower extremity deep venous system is examined utilizing real time linear array sonog perez with graded compression, doppler sonography and color-flow sonography. VESSELS IMAGED: Common Femoral Vein Deep Femoral Vein Greater Saphenous Vein * Femoral Vein Popliteal Vein Small Saphenous Vein * Proximal Calf Veins (* superficial vessels) Right Leg: No evidence of DVT in veins imaged at this time. Limited visibility of calf veins at the ankle due to edema. IMPRESSION: 1. Right lower extremity ultrasound negative for deep venous thrombosis. 2. There is limitation in the calf veins due to edema
== END | disposition home or self-care (01) ==
LOC: RADUSWWP 14:35
PROVIDERS: ATTEND Orthopaedic Surgery
DX: I80.9 Phlebitis and thrombophlebitis of unspecified site (principal)

== ENCOUNTER 2023-09-10 10:13 | Day surgery (SDC) | payer BC ==
[2023-09-04 16:29] VITALS: BMI 44.3
[~2023-09-10 10:13] MED LIST changes: -DEXAMETHASONE SOD PHOSPHATE 4 MG/ML 1 ML VIAL IV ONE; -HYDROmorphone 0.5 MG/0.5 ML SYRINGE IVP PRN; -LACTATED RINGERS 1,000 ML IV SCH; -METOCLOPRAMIDE 5 MG/ML 2 ML VIAL IVP PRN; +MIDAZOLAM 2 MG/2 ML VIAL IV PRN; -ONDANSETRON 4 MG/2 ML VIAL IVP ONE; +ONDANSETRON 4 MG/2 ML VIAL IVP PRN; -ceFAZolin 3 GM in SODIUM CHLORIDE 0.9% 100 ML IVPB PRN
[2023-09-10] MEDS: ACETAMINOPHEN TAB 500 MG TAB PO PRN (10:40)
[2023-09-10] MEDS: MELOXICAM 7.5 MG TAB PO PRN (10:41)
[2023-09-10 11:00] VITALS: RESP 16
[2023-09-10 11:01] LABS: Glucose,Whole Blood 112 mg/dL (70-110)
[2023-09-10] MEDS: DEXAMETHASONE SOD PHOSPHATE 4 MG/ML 1 ML VIAL IV ONE (11:03)
[2023-09-10] MEDS: LACTATED RINGERS 1,000 ML IV SCH (11:03)
[2023-09-10] MEDS: ONDANSETRON 4 MG/2 ML VIAL IVP ONE (11:03)
[2023-09-10 11:08] LABS: Anisocytosis Slight; Basophils # (A) 0.1 k/uL (0-0.2); Basophils % (A) 1 %; Eosinophils # (A) 0.1 k/uL (0-0.7); Eosinophils % (A) 1 %; HCT 38.9 % (39.0-53.0); HGB 11.7 gm/dL (13.0-17.5); Hypochromasia Moderate; Lymphocytes # (A) 2.1 k/uL (1.0-4.8); Lymphocytes % (A) 22 %; MCH 21.7 pg (25.0-35.0); MCHC 29.9 g/dL (31.0-37.0); MCV 72.6 fL (80.0-100.0); Mean Platelet Volume 7.1; Microcytosis Moderate; Monocytes # (A) 0.7 k/uL (0-1.0); Monocytes % (A) 7 %; Neutrophils # (A) 6.3 k/uL (1.3-7.7); Neutrophils % (A) 66 %; Platelet Count 342 k/uL (150-450); Poikilocytosis Slight; RBC 5.36 m/uL (4.30-5.90); RDW 17.2 % (11.5-15.5); WBC 9.5 k/uL (3.8-10.6)
[2023-09-10] MEDS: MIDAZOLAM 2 MG/2 ML VIAL IVP ONE (11:29)
[2023-09-10 11:47] LABS: ALT 19 U/L (4-49); AST 25 U/L (17-59); African American GFR (CKD) >90 (>60 ml/min/1.73 sqM); Albumin 3.8 g/dL (3.5-5.0); Alkaline Phosphatase 92 U/L (38-126); Anion Gap 6 mmol/L; Blood Urea Nitrogen 11 mg/dL (9-20); Calcium 8.8 mg/dL (8.4-10.2); Carbon Dioxide 27 mmol/L (22-30); Chloride 106 mmol/L (98-107); Glucose 103 mg/dL (74-99); Non-African American GFR(CKD) >90 (>60 ml/min/1.73 sqM); Potassium 3.7 mmol/L (3.5-5.1); Sodium 139 mmol/L (137-145); Total Bilirubin 0.7 mg/dL (0.2-1.3); Total Protein 6.7 g/dL (6.3-8.2)
[2023-09-10] MEDS: HEPARIN SODIUM,PORCINE 5,000 UNIT/ML 1 ML VIAL SQ PRN (11:49)
[2023-09-10] MEDS ORDERED: NEOSTIGMINE 1 MG/ML 10 ML VIAL ONE (12:08)
[2023-09-10] MEDS ORDERED: SUCCINYLCHOLINE CHLORIDE 200 MG/10 ML VIAL IV ONE (12:08)
[2023-09-10] MEDS ORDERED: LIDOCAINE 1% INJ 10MG/ML (20 ML MDV) ONE (12:08)
[2023-09-10] MEDS ORDERED: PROPOFOL 10 MG/ML 20 ML VIAL IV ONE (12:08)
[2023-09-10] MEDS ORDERED: GLYCOPYRROLATE 0.2 MG/ML 2 ML VIAL ONE (12:08)
[2023-09-10] MEDS ORDERED: fentaNYL (PF) 50 MCG/ML 2 ML AMP ONE (12:08)
[2023-09-10] MEDS ORDERED: ROPIVACAINE 5 MG/ML 30 ML VIAL ONE (12:08)
[2023-09-10] MEDS ORDERED: KETAMINE HCL IN 0.9 % NACL 50 MG/5 ML SYRINGE ONE (12:08)
[2023-09-10] MEDS ORDERED: DEXAMETHASONE SOD PHOSPHATE 4 MG/ML 1 ML VIAL ONE (12:08)
[2023-09-10] MEDS ORDERED: ROCURONIUM 10 MG/ML (5 ML VIAL) IV ONE (12:08)
[2023-09-10] MEDS ORDERED: KETOROLAC 15 MG/ML 1 ML VIAL ONE (12:08)
[2023-09-10] MEDS: ceFAZolin 3 GM in SODIUM CHLORIDE 0.9% 100 ML IVPB PRN (12:12)
--- NOTE | 2023-09-10 12:14 | P.GSHP ---
History of Present Illness H&P Date: 09/10/23 CHIEF COMPLAINT: Ventral hernia HISTORY OF PRESENT ILLNESS: The patient is a 63-year-old male presents with a history of swelling and pain along the abdomen from a hernia of the abdomen. Symptoms have been present for over 6 months. Now he presents for surgical intervention. PAST MEDICAL HISTORY: Please see list. PAST SURGICAL HISTORY: Please see list. MEDICATIONS: Please see list. ALLERGIES: Please see list. SOCIAL HISTORY: No illicit drug use FAMILY HISTORY: No reports of Crohn disease or ulcerative colitis. REVIEW OF ORGAN SYSTEMS: CONSTITUTIONAL: Denies any fever or chills. Morbid obesity, BMI 43.1 HEENT: Denies any trouble with vision, hearing or nosebleeds. No difficulty swallowing. LYMPHATIC: The patient denies any lumps and bumps around the neck. ENDOCRINE: Denies any thyroid disorders. Denies any blood sugar glucose intolerance. RESPIRATORY: Denies pneumonia. Denies any troubles with breathing or dyspnea on exertion. CARDIOVASCULAR: Denies any chest pain, palpitations, or recent heart attacks. GASTROINTESTINAL: Denies heart burn, constipation or bright red blood per rectum. GENITOURINARY: Denies any blood in urine or increased urinary frequency. MUSCULOSKELETAL: Denies any back pain, stiffness, joint arthritis. NEUROLOGIC: Denies any numbness or tingling along the distal extremities. No seizure disorders or headaches. PSYCHIATRIC: Denies depression or suidical ideation. HEMATOLOGIC: Denies any abnormal bleeding or bruising. BREASTS: Denies any breast lumps, pain or nipple discharge. PHYSICAL EXAM: GENERAL: Well-developed pleasant male in no acute distress. HEENT: No scleral icterus. Extraocular movements grossly intact. Moist buccal mucosa. NECK: Supple without lymphadenopathy. CHEST: Unlabored respirations. Equal bilateral excursions. CARDIOVASCULAR: Regular rate and rhythm. Distal 2+ pulses. ABDOMEN: Soft, nondistended. Palpable defect of the abdomen. No peritoneal signs. MUSCULOSKELETAL: No clubbing, cyanosis, or edema. SKIN: Well perfused. PSYCH: Alert and oriented to self, place and time ASSESSMENT: 1. Ventral hernia 2. Morbid obesity due to excess calories, BMI 43.1 PLAN: 1. Recommend proceeding with robotic ventral hernia repair with mesh. 2. Benefits and risks of surgical intervention was discussed including possibility of open technique. 3. DVT prophylaxis. 4. Antibiotic prophylaxis. 5. Non narcotic pain management including abdominal wall block described 6. Blood sugar glucose described. 7. Weight loss management described. 8. He is elevated risk for recurrence due to BMI 43 point Past Medical History Past Medical History: Atrial Fibrillation, Asthma, Diabetes Mellitus, Eye Disorder, Hyperlipidemia, Hypertension, Osteoarthritis (OA), Sleep Apnea/CPAP/BIPAP Additional Past Medical History / Comment(s): Hx PVC'S, CPAP use. Hx kidney stones. Inflammation in eyes to due Arthritis. TENS unit in back for pain. History of Any Multi-Drug Resistant Organisms: MRSA Date of last positivie culture/infection: 2016 MDRO Source:: perineum Past Surgical History: Hernia Repair, Joint Replacement, Orthopedic Surgery Additional Past Surgical History / Comment(s): right knee replacement, RIGHT KNEE ARTHROSCOPIC RIGHT CARPAL TUNNEL RELEASE, ING HERNIA X2, kidney stones, epi durals for back pain, TENS unit implant. Past Anesthesia/Blood Transfusion Reactions: Postoperative Nausea & Vomiting (PONV) Smoking Status: Never smoker - Past Family History Father Family Medical History: Cancer Additional Family Medical History / Comment(s): SKIN Mother Family Medical History: Cancer Medications and Allergies Home Medications Medication Instructions Recorded Confirmed Type Metoprolol Tartrate [Lopressor] 100 mg PO BID 03/07/15 09/10/23 History Cetirizine HCl [Zyrtec] 10 mg PO DAILY 03/30/18 09/10/23 History Albuterol Inhaler [Ventolin Hfa 1 puff INHALATION RT-QID PRN 09/12/20 09/10/23 History Inhaler] Apixaban [Eliquis] 5 mg PO BID 09/12/20 09/07/23 History Budesonide-Formot 160-4.5 Mcg 2 puff INHALATION BID PRN 09/12/20 09/10/23 History [Symbicort 160-4.5 Mcg Inhaler] Propafenone HCl 150 mg PO BID 09/12/20 09/10/23 History Simvastatin [Zocor] 40 mg PO HS 09/12/20 09/10/23 History Tiotropium 2.5 Mcg/Puff [Spiriva 1 puff INHALATION QAM PRN 09/12/20 09/10/23 History Respimat 2.5 Mcg] dilTIAZem HCL [Cartia Xt] 120 mg PO BID 09/12/20 09/10/23 History metFORMIN HCL [Glucophage] 500 mg PO BID 12/28/20 09/10/23 History HYDROcodone/APAP 7.5-325MG [[place] 1 tab PO Q4H PRN 3 Days #10 tab 01/02/21 09/10/23 Rx 7.5-325] Ketorolac 0.5% Ophth Soln [Acular 1 drops BOTH EYES QID 09/07/23 09/07/23 History 0.5%] Losartan/Hydrochlorothiazide 1 tab PO QAM 09/07/23 09/10/23 History [Losartan-Hctz 100-12.5 mg Tab] Montelukast [Singulair] 10 mg PO HS 09/07/23 09/10/23 History Omeprazole 20 mg PO QAM 09/07/23 09/07/23 History Semaglutide [Ozempic] 0.25 mg SQ FR 09/07/23 09/10/23 History Tamsulosin [Flomax] 0.4 mg PO DAILY 09/07/23 09/10/23 History hydrALAZINE HCL 25 mg PO BID 09/07/23 09/10/23 History Allergies Allergy/AdvReac Type Severity Reaction Status Date / Time sulfamethoxazole AdvReac Rash/Hives Verified 09/10/23 10:29 [From Bactrim] trimethoprim [From Bactrim] AdvReac Rash/Hives Verified 09/10/23 10:29 Surgical - Exam Vital Signs Temp Pulse Resp BP Pulse Ox 97.8 F 58 L 16 161/71 97 09/10/23 10:48 09/10/23 10:48 09/10/23 10:48 09/10/23 10:48 09/10/23 10:48 Results - Labs 09/10/23 10:50 09/10/23 11:16 Abnormal Lab Results - Last 24 Hours (Table) 09/10/23 09/10/23 09/10/23 Range/Units 10:50 10:52 11:16 Hgb 11.7 L (13.0-17.5) gm/dL Hct 38.9 L (39.0-53.0) % MCV 72.6 L (80.0-100.0) fL MCH 21.7 L (25.0-35.0) pg MCHC 29.9 L (31.0-37.0) g/dL RDW 17.2 H (11.5-15.5) % Glucose 103 H (74-99) mg/dL POC Glucose (mg/dL) 112 H (70-110) mg/dL Diabetes panel 09/10/23 Range/Units 11:16 Sodium 139 (137-145) mmol/L Potassium 3.7 (3.5-5.1) mmol/L Chloride 106 (98-107) mmol/L Carbon Dioxide 27 (22-30) mmol/L BUN 11 (9-20) mg/dL Creatinine 0.68 (0.66-1.25) mg/dL Glucose 103 H (74-99) mg/dL Calcium 8.8 (8.4-10.2) mg/dL AST 25 (17-59) U/L ALT 19 (4-49) U/L Alkaline Phosphatase 92 (38-126) U/L Total Protein 6.7 (6.3-8.2) g/dL Albumin 3.8 (3.5-5.0) g/dL Calcium panel 09/10/23 Range/Units 11:16 Calcium 8.8 (8.4-10.2) mg/dL Albumin 3.8 (3.5-5.0) g/dL Pituitary panel 09/10/23 Range/Units 11:16 Sodium 139 (137-145) mmol/L Potassium 3.7 (3.5-5.1) mmol/L Chloride 106 (98-107) mmol/L Carbon Dioxide 27 (22-30) mmol/L BUN 11 (9-20) mg/dL Creatinine 0.68 (0.66-1.25) mg/dL Glucose 103 H (74-99) mg/dL Calcium 8.8 (8.4-10.2) mg/dL Adrenal panel 09/10/23 Range/Units 11:16 Sodium 139 (137-145) mmol/L Potassium 3.7 (3.5-5.1) mmol/L Chloride 106 (98-107) mmol/L Carbon Dioxide 27 (22-30) mmol/L BUN 11 (9-20) mg/dL Creatinine 0.68 (0.66-1.25) mg/dL Glucose 103 H (74-99) mg/dL Calcium 8.8 (8.4-10.2) mg/dL Total Bilirubin 0.7 (0.2-1.3) mg/dL AST 25 (17-59) U/L ALT 19 (4-49) U/L Alkaline Phosphatase 92 (38-126) U/L Total Protein 6.7 (6.3-8.2) g/dL Albumin 3.8 (3.5-5.0) g/dL
[2023-09-10] MEDS: LIDOCAINE 1%-EPI 1:100,000 20 ML VIAL SQ ONE (12:39)
[2023-09-10 13:46] LABS: Glucose,Whole Blood 155 mg/dL (70-110)
[2023-09-10] MEDS: LACTATED RINGERS 1,000 ML IV ONE (14:02)
--- NOTE | 2023-09-10 14:07 | P.OP ---
Date of Procedure: 09/10/23 Description of Procedure: SURGEON: PREMA HUGHES MD PREOPERATIVE DIAGNOSES: 1. Initial incarcerated umbilical hernia, 3 cm 2. Morbid obesity due to excess calories, BMI 43.1 3. Atrial fibrillation 4. 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 Hypertensive heart disease 6. Obstructive uropathy due to prostate disorder 7. Chronic obstructive pulmonary disease 8. Hyperlipidemia 9. Obstructive sleep apnea 10. Chronic anticoagulant use 11. Gastroesophageal reflux disease 12. Chronic pain syndrome 13. History of multiple abdominal wall hernias POSTOPERATIVE DIAGNOSES: 1. Initial incarcerated umbilical hernia 2. Morbid obesity due to excess calories, BMI 43.1 3. Atrial fibrillation 4. 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 Hypertensive heart disease 6. Obstructive uropathy due to prostate disorder 7. Chronic obstructive pulmonary disease 8. Hyperlipidemia 9. Obstructive sleep apnea 10. Chronic anticoagulant use 11. Gastroesophageal reflux disease 12. Chronic pain syndrome 13. History of multiple abdominal wall hernias OPERATION: 1. Robotic-assisted da Rebekah Xi laparoscopic repair of initial incarcerated umbilical hernia with mesh, ventralight ST mesh 11.4 cm Anesthesia: GETA, regional, local Estimated Blood Loss (ml): 5 Pathology: None COMPLICATIONS: None. Operative Findings: 1. Umbilical hernia defect 2 centimeter fascial defect 2. Thin abdominal subcutaneous tissue with risk of recurrent hernia 3. Fascia repaired using #1 V-lock suture INDICATIONS: The patient is a 63-year-old male who presents with a personal history of multiple abdominal wall hernias. Surgical intervention with laparoscopic versus robotic and open techniques were reviewed. Placement of mesh was also reviewed. Benefits and risks were thoroughly described. Informed consent was obtained. DESCRIPTION OF PROCEDURE: The patient was brought into the operating room and laid in supine position. After general induction, the abdomen had been prepped and draped in standard sterile fashion. Ioban draping was also placed. Prior to incision, a timeout protocol was confirmed with surgical team regarding the patient's name including procedures to be performed. The robot was primed prior to the procedure. A field block using local anesthetic was placed along hernia site including the proposed port sites. Initial incision was made with an #11 blade along the left upper quadrant. A 0 degree 5 mm laparoscopic trocar entry was performed and insufflated. Three 8 mm ports were placed along the left lateral abdominal wall under direct localization after exchanging the 5-mm for an 8 mm port. Placements of the ports were 15 cm from the target anatomy and 10 cm apart. An accessory 12 mm port was placed at the left upper quadrant for exchange of mesh including sutures. The da Rebekah Xi robot was previously primed, prepped and draped then docked from the right side of the patient onto the left side of the patient. I then sat at the robot Da Rebekah Xi console where working arms of the robot including Bovie cautery connected to robotic scissors, needle warehouse associate driver, and graspers placed by the restaurant assistant manager. Incarcerated omental contents were found along the upper midline defect including umbilicus. The defects were reduced of incarcerated omental fat. Distinct fascial defects umbilical hernia defect 2 x 3 cm. The incarcerated contents were reduced as the peritoneal fat was cleaned from the abdominal wall. Next, hemostasis was checked with cautery. The hernia defects were oversewn using #1 nonabsorbable V-lock suture with fascial imbrication x 2. Next, ventralight ST mesh 11.4 cm was placed with the rough side towards the abdominal wall as to cover the umbilical defect. 2-0 VLOC 12 inch sutures were used to fixate the mesh. A final endoscopic imaging was obtained. All instruments and pneumoperitoneum were evacuated from the abdominal cavity. The da Rebekah Xi robot was undocked from the patient. I re-scrubbed into the case for closure of incisions. The fascia of the 12-mm port was probed and less than 8-mm in size. The incisions were reapproximated using 4-0 Monocryl in an interrupted subcuticular fashion. Liquid glue was applied to the skin after cleansing the skin with normal saline and dilute hydrogen peroxide. An abdominal binder was placed. An umbilical dressing was placed prior. At the end of the procedure, needle, sponge, and instrument count had been verified correct by operating room surgical technologist. The patient was taken to the postanesthesia care unit in stable condition. Plan - Discharge Summary Discharge Rx Participant: No New Discharge Prescriptions: New Acetaminophen Tab [Tylenol Tab] 1,000 mg PO Q6HR PRN #30 tablet PRN Reason: Pain Simethicone [Gas-X] 125 mg PO AC-TID PRN #20 capsule PRN Reason: Pain Continue Metoprolol Tartrate [Lopressor] 100 mg PO BID Cetirizine HCl [Zyrtec] 10 mg PO DAILY Budesonide-Formot 160-4.5 Mcg [Symbicort 160-4.5 Mcg Inhaler] 2 puff INHALATION BID PRN PRN Reason: Shortness Of Breath dilTIAZem HCL [Cartia Xt] 120 mg PO BID Simvastatin [Zocor] 40 mg PO HS Losartan/Hydrochlorothiazide [Losartan-Hctz 100-12.5 mg Tab] 1 tab PO QAM Ketorolac 0.5% Ophth Soln [Acular 0.5%] 1 drops BOTH EYES QID Omeprazole 20 mg PO QAM Apixaban [Eliquis] 5 mg PO BID Albuterol Inhaler [Ventolin Hfa Inhaler] 1 puff INHALATION RT-QID PRN PRN Reason: Shortness Of Breath Tiotropium 2.5 Mcg/Puff [Spiriva Respimat 2.5 Mcg] 1 puff INHALATION QAM PRN PRN Reason: Shortness Of Breath Propafenone HCl 150 mg PO BID metFORMIN HCL [Glucophage] 500 mg PO BID HYDROcodone/APAP 7.5-325MG [[place] 7.5-325] 1 tab PO Q4H PRN 3 Days #10 tab PRN Reason: Pain Montelukast [Singulair] 10 mg PO HS Tamsulosin [Flomax] 0.4 mg PO DAILY hydrALAZINE HCL 25 mg PO BID Semaglutide [Ozempic] 0.25 mg SQ FR Discharge Medication List Metoprolol Tartrate [Lopressor] 100 mg PO BID 03/07/15 [History] Cetirizine HCl [Zyrtec] 10 mg PO DAILY 03/30/18 [History] Albuterol Inhaler [Ventolin Hfa Inhaler] 1 puff INHALATION RT-QID PRN 09/12/20 [History] Apixaban [Eliquis] 5 mg PO BID 09/12/20 [History] Budesonide-Formot 160-4.5 Mcg [Symbicort 160-4.5 Mcg Inhaler] 2 puff INHALATION BID PRN 09/12/20 [History] Propafenone HCl 150 mg PO BID 09/12/20 [History] Simvastatin [Zocor] 40 mg PO HS 09/12/20 [History] Tiotropium 2.5 Mcg/Puff [Spiriva Respimat 2.5 Mcg] 1 puff INHALATION QAM PRN 09/12/20 [History] dilTIAZem HCL [Cartia Xt] 120 mg PO BID 09/12/20 [History] metFORMIN HCL [Glucophage] 500 mg PO BID 12/28/20 [History] HYDROcodone/APAP 7.5-325MG [[place] 7.5-325] 1 tab PO Q4H PRN 3 Days #10 tab 01/02/21 [Rx] Ketorolac 0.5% Ophth Soln [Acular 0.5%] 1 drops BOTH EYES QID 09/07/23 [History] Losartan/Hydrochlorothiazide [Losartan-Hctz 100-12.5 mg Tab] 1 tab PO QAM 09/07/23 [History] Montelukast [Singulair] 10 mg PO HS 09/07/23 [History] Omeprazole 20 mg PO QAM 09/07/23 [History] Semaglutide [Ozempic] 0.25 mg SQ FR 09/07/23 [History] Tamsulosin [Flomax] 0.4 mg PO DAILY 09/07/23 [History] hydrALAZINE HCL 25 mg PO BID 09/07/23 [History] Acetaminophen Tab [Tylenol Tab] 1,000 mg PO Q6HR PRN #30 tablet 09/10/23 [Rx] Simethicone [Gas-X] 125 mg PO AC-TID PRN #20 capsule 09/10/23 [Rx] Follow up Appointment(s)/Referral(s): Prema Hughes MD [STAFF PHYSICIAN] - 09/15/23 11:00 am Patient Instructions/Handouts: Abdominal Binder (DC), Laparoscopic Herniorrhaphy (IP) Activity/Diet/Wound Care/Special Instructions: DO NOT REMOVE UMBILICAL DRESSING. START BLOOD THINNER 09/12/23 Using antibacterial soap. No lifting over 4 pounds 4 weeks, October 10, 2023 May shower. No bathtub soaks for 2 weeks, September 23 Wear abdominal binder daily for comfort except for showering. Use ice along incisions for today to prevent swelling. Take tylenol, simethicone scheduled for 3 days for best pain relief Discharge Disposition: HOME SELF-CARE
[2023-09-10] MEDS: HYDROmorphone 0.5 MG/0.5 ML SYRINGE IVP PRN (14:12)
[2023-09-10 14:21] VITALS: TEMP 98.2
[2023-09-10 15:02] VITALS: BP 136/72; PULSE 66
--- NOTE | 2023-09-12 14:58 | P.ANPRN ---
Procedure Note - Anesthesia - Nerve Block Performed Bilateral Rectus Abdominis Single Time Out Performed: Yes Date of Procedure: 09/10/23 Procedure Start Time: 11:28 Procedure Stop Time: 11:33 Location of Patient: PreOp Indication: Acute Post-Operative Pain, Requested by Surgeon Sedation Type: Sedate with meaningful contact maintained Preparation: Sterile Prep Position: Supine Needle Types: Pajunk Needle Gauge: 21 Ultrasound used to visualize needle placement: Yes Ultrasound used to observe medication spread: Yes Blood Aspirated: No Pain Paresthesia on Injection Noted: No Resistance on Injection: Normal Image Stored and Saved: Yes Events: Uneventful and Well Tolerated (Ropivacaine 0.5% 20 cc plus dexamethasone 4 mg given bilaterally)
== END 2023-09-10 15:24 | disposition home or self-care (01) ==
LOC: OR 10:13
PROVIDERS: ATTEND Surgery Plastic and Reconstructive Surgery
DX: K42.0 Umbilical hernia with obstruction, without gangrene (principal); E66.01 Morbid (severe) obesity due to excess calories; E11.9 Type 2 diabetes mellitus without complications; E78.5 Hyperlipidemia, unspecified; G47.33 Obstructive sleep apnea (adult) (pediatric); G89.4 Chronic pain syndrome; I48.91 Unspecified atrial fibrillation; I11.9 Hypertensive heart disease without heart failure; J44.89 Other specified chronic obstructive pulmonary disease; K21.9 Gastro-esophageal reflux disease without esophagitis; M19.90 Unspecified osteoarthritis, unspecified site; G89.18 Other acute postprocedural pain; Z68.41 Body mass index [BMI] 40.0-44.9, adult; Z79.01 Long term (current) use of anticoagulants; Z79.51 Long term (current) use of inhaled steroids; Z79.84 Long term (current) use of oral hypoglycemic drugs; Z79.899 Other long term (current) drug therapy; Z88.1 Allergy status to other antibiotic agents; Z88.2 Allergy status to sulfonamides; Z86.14 Personal history of Methicillin resistant Staphylococcus aureus infection
CPT/HCPCS: 49594; S2900; 64488; 80053; 85025

== ENCOUNTER → 2024-01-04 | Outpatient (CLI) | payer BC ==
--- NOTE | 2024-01-04 11:31 | XR ---
EXAMINATION TYPE: XR KUB DATE OF EXAM: 01/04/2024 10:39 AM CLINICAL INDICATION:Male, 63 years old with history of N20.0 CALCULUS OF KIDNEY; [facility] COMPARISON: 01/23/2021.. TECHNIQUE: One radiographic view of the abdomen was obtained. FINDINGS: The bowel gas pattern is nonspecific without dilated loops of small or large bowel. . Fecal material and gas are demonstrated throughout the colon and rectum. There is no evidence for organomegaly or pneumoperitoneum. The osseous structures are intact. Right renal calculi measuring up to 11 mm. Nerve stimulator leads project over the spine. Multiple pelvic phlebolith are present. IMPRESSION: 1. 11 mm right renal calculus. 2. Nonspecific bowel gas pattern without radiographic evidence for acute process.
== END | disposition home or self-care (01) ==
LOC: RADXRMAIN 10:24
PROVIDERS: ATTEND Urology
DX: N20.0 Calculus of kidney (principal)
CPT/HCPCS: 74018

== ENCOUNTER → 2024-04-01 | Outpatient (CLI) | payer BC, OTHER ==
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
== END | disposition home or self-care (01) ==
LOC: RADCTMAIN 07:35
PROVIDERS: ATTEND Psychiatry & Neurology Neurology
DX: M51.17 Intervertebral disc disorders with radiculopathy, lumbosacral region (principal); M47.26 Other spondylosis with radiculopathy, lumbar region; M48.061 Spinal stenosis, lumbar region without neurogenic claudication; M46.1 Sacroiliitis, not elsewhere classified; N20.0 Calculus of kidney; Z96.89 Presence of other specified functional implants
CPT/HCPCS: 72131

== ENCOUNTER → 2024-08-18 | Outpatient (CLI) | payer BC, OTHER ==
--- NOTE | 2024-08-18 09:00 | XR ---
EXAMINATION TYPE: XR KUB DATE OF EXAM: 08/18/2024 8:51 AM CLINICAL INDICATION: Male, 64 years old with history of N20.0 calculus, pain TECHNIQUE: 2 supine views of the abdomen. COMPARISON: Prior abdominal x-ray January 04, 2024. FINDINGS: Stable 12 mm right renal calculus projecting at inferior L3 level. No definitive left renal calculi. Scattered bilateral pelvic phleboliths are again seen. Lower thoracic stimulator device redemonstrated. Overall nonobstructive bowel gas pattern redemonstra corrine. IMPRESSION: As above. [facility], , 08/18/2024 8:58 AM
== END | disposition home or self-care (01) ==
LOC: RADXRMAIN 08:31
PROVIDERS: ATTEND Urology
DX: N20.0 Calculus of kidney (principal)
CPT/HCPCS: 74018

== ENCOUNTER → 2024-09-06 | Outpatient (CLI) | payer BC ==
--- NOTE | 2024-09-06 11:06 | CT ---
EXAMINATION TYPE: CT abdomen pelvis wo con DATE OF EXAM: 09/06/2024 11:00 AM COMPARISON: 11/16/2020. CLINICAL INDICATION: Male, 64 years old with history of N20.0 CALCULUS OF KIDNEY N20.1 CALCULUS OF UR ETER; Hx renal stones, pain in RT side worse TECHNIQUE: Axial CT abdomen pelvis wo con;Sagittal and coronal reformats were created on a separate workstation. Contrast used: mL of , (none if empty) Oral contrast used: without Oral Contrast (none if empty) CT DLP: 1057 mGycm, Automated exposure control for dose reduction was used. FINDINGS: LOWER CHEST: Calcifications partially visualized. There is mildly enlarged for size. ABDOMEN LIVER: Unremarkable GALLBLADDER AND BILE DUCTS: Unremarkable. PANCREAS: Unremarkable. SPLEEN: Unremarkable. ADRENAL GLANDS: Unremarkable. KIDNEYS AND URETERS: No hydronephrosis. Nonobstructing renal calculi bilaterally measuring up to 11 m m on the right and 2 mm on the left. Simple appearing right renal probable cyst measuring 5.2 cm. Rig ht renal pelvis calcifications seen on prior no longer visualized. PELVIS BLADDER: No evidence for wall thickening or mass given limitations of exam. REPRODUCTIVE: Unremarkable. ABDOMEN & PELVIS STOMACH AND BOWEL: No evidence of bowel obstruction. Scattered colonic diverticula. The appendix is n ormal. PERITONEUM/RETROPERITONEUM: No evidence of pneumoperitoneum or free fluid. Scattered pelvic phlebolit hs noted. VASCULATURE: No evidence of aortic aneurysm. MUSCULOSKELETAL: No acute osseous abnormalities. Moderate disc degeneration changes are present throu ghout the thoracolumbar spine. cam deformities of the femoral heads, there is mild degeneration davidson es of the hips. Stimulator leads terminate in the posterior spine LYMPH NODES: No gross evidence for lymphadenopathy. SOFT TISSUE/ABDOMINAL WALL: Fatty changes in the inguinal canals bilaterally. IMPRESSION: 1. No evidence for acute abdominal process. 2. No evidence for obstructive uropathy. Nonobstructing bilateral renal calculi. 3. Right renal probable cysts. No follow-up recommended 4. The appendix is normal. 5. Colonic diverticulosis. 6. 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 7. Mild aortic valve calcifications. 8. Mild cardiomegaly. [facility], , 09/06/2024 11:04 AM
== END | disposition home or self-care (01) ==
LOC: RADCTMAIN 10:30
PROVIDERS: ATTEND Urology
DX: N20.2 Calculus of kidney with calculus of ureter (principal); I35.0 Nonrheumatic aortic (valve) stenosis; K57.30 Diverticulosis of large intestine without perforation or abscess without bleeding; I51.7 Cardiomegaly
CPT/HCPCS: 74176

== ENCOUNTER 2024-09-14 05:46 | Day surgery (SDC) | payer BC ==
--- NOTE | 2024-09-13 09:43 | P.GSHP ---
History of Present Illness H&P Date: 09/13/24 64-year-old gentleman with a history of stones. He was found to have right flank pain and identified a 12 mm right renal stone. He was sent to me. We assessed the x-ray. We discussed treatment options including observation shockwave lithotripsy ureteroscopy or percutaneous nephrostolithotomy. Given that it is a lower pole stone and he wishes the stone out we will do ureteroscopy laser lithotripsy risk complications have been outlined he comes for this procedure - Constitutional Constitutional: Denies chills, Denies fever - EENT Eyes: denies blurred vision, denies pain Ears, nose, mouth and throat: Denies headache, Denies sore throat - Cardiovascular Cardiovascular: Denies chest pain, Denies shortness of breath - Respiratory Respiratory: Denies cough, Denies 7 - Gastrointestinal Gastrointestinal: Denies abdominal pain, Denies diarrhea, Denies nausea, Denies vomiting - Genitourinary (Female) Genitourinary: Denies dysuria, Denies hematuria - Genitourinary (Male) Genitourinary: Denies dysuria, Denies hematuria - Musculoskeletal Musculoskeletal: Denies myalgias - Integumentary Integumentary: Denies pruritus, Denies rash - Neurological Neurological: Denies numbness, Denies weakness - Psychiatric Psychiatric: Denies anxiety, Denies depression - Endocrine Endocrine: Denies fatigue, Denies weight change Past Medical History Past Medical History: Atrial Fibrillation, Asthma, Diabetes Mellitus, Eye Disorder, GERD/Reflux, Hyperlipidemia, Hypertension, Osteoarthritis (OA), Sleep Apnea/CPAP/BIPAP Additional Past Medical History / Comment(s): Hx PVC'S, CPAP use. Hx kidney stones. Inflammation in eyes to due Arthritis. nerve stimulator to back History of Any Multi-Drug Resistant Organisms: MRSA Date of last positivie culture/infection: 2016 MDRO Source:: perineum Past Surgical History: Hernia Repair, Joint Replacement, Orthopedic Surgery Additional Past Surgical History / Comment(s): right knee replacement, RIGHT KNEE ARTHROSCOPIC RIGHT CARPAL TUNNEL RELEASE, ING HERNIA X2, kidney stones, ep idurals for back pain, TENS unit implant. umbilical hernia repair.. colonoscopy Past Anesthesia/Blood Transfusion Reactions: Postoperative Nausea & Vomiting (PONV) Smoking Status: Never smoker - Past Family History Father Family Medical History: Cancer Additional Family Medical History / Comment(s): SKIN Mother Family Medical History: Cancer Medications and Allergies Home Medications Medication Instructions Recorded Confirmed Type Metoprolol Tartrate [Lopressor] 100 mg PO BID 03/07/15 09/12/24 History Cetirizine HCl [Zyrtec] 10 mg PO DAILY 03/30/18 09/12/24 History Albuterol Inhaler [Ventolin Hfa 1 puff INHALATION RT-QID PRN 09/12/20 09/12/24 History Inhaler] Apixaban [Eliquis] 5 mg PO BID 09/12/20 09/12/24 History Budesonide-Formot 160-4.5 Mcg 2 puff INHALATION BID PRN 09/12/20 09/12/24 History [Symbicort 160-4.5 Mcg Inhaler] Propafenone HCl 150 mg PO BID 09/12/20 09/12/24 History Simvastatin [Zocor] 40 mg PO HS 09/12/20 09/12/24 History Tiotropium 2.5 Mcg/Puff [Spiriva 1 puff INHALATION QAM PRN 09/12/20 09/12/24 History Respimat 2.5 Mcg] dilTIAZem HCL [Cartia Xt] 120 mg PO BID 09/12/20 09/12/24 History metFORMIN HCL [Glucophage] 500 mg PO BID 12/28/20 09/12/24 History HYDROcodone/APAP 7.5-325MG [Hamler 1 tab PO Q4H PRN 3 Days #10 tab 01/02/21 09/12/24 Rx 7.5-325] Losartan/Hydrochlorothiazide 1 tab PO QAM 09/07/23 09/12/24 History [Losartan-Hctz 100-12.5 mg Tab] Montelukast [Singulair] 10 mg PO HS 09/07/23 09/12/24 History Omeprazole 20 mg PO QAM 09/07/23 09/12/24 History Semaglutide [Ozempic] 0.5 mg SQ FR 09/07/23 09/12/24 History Tamsulosin [Flomax] 0.4 mg PO DAILY 09/07/23 09/12/24 History hydrALAZINE HCL 25 mg PO BID 09/07/23 09/12/24 History Acetaminophen Tab [Tylenol Tab] 1,000 mg PO Q6HR PRN #30 tablet 09/10/23 09/12/24 Rx Ibuprofen [Motrin Ib] 800 mg PO DIRECTED PRN 09/12/24 09/12/24 History Allergies Allergy/AdvReac Type Severity Reaction Status Date / Time sulfamethoxazole AdvReac Rash/Hives Verified 09/12/24 09:27 [From Bactrim] trimethoprim [From Bactrim] AdvReac Rash/Hives Verified 09/12/24 09:27 Surgical - Exam - General well developed, well nourished, no distress - Eyes normal ocular movement, no icteric - ENT no hearing loss, no congestion - Neck no masses, trachea midline - Respiratory normal respiratory effort, clear to auscultation - Abdomen Abdomen: soft, non tender, no guarding, no rigid, no rebound - Integumentary no rash, no abnormal pigmentation - Neurologic no disoriented, no combative - Psychiatric oriented to time, oriented to person, oriented to place, speech is normal, memory intact Results - Imaging CT scan - abdomen: report reviewed, image reviewed CT scan - pelvis: report reviewed, image reviewed Assessment and Plan Assessment: Impression: Right renal calculus with colic Recommendations: Right ureteroscopy with laser lithotripsy
--- NOTE | 2024-09-14 06:28 | XR ---
EXAMINATION TYPE: XR KUB DATE OF EXAM: 09/14/2024 6:12 AM CLINICAL INDICATION: Male, 64 years old with history of N20.0 right renal stone, pain TECHNIQUE: 2 supine views of the abdomen. COMPARISON: CT abdomen and pelvis September 06, 2024. FINDINGS: Large 12 mm calculus in right kidney is redemonstrated. No definitive left-sided nephrolith iasis. Multiple bilateral pelvic phleboliths are redemonstrated. Thoracic spinal stimulator device is again seen. Overall nonobstructive bowel gas pattern. Lung bases are clear. There is multilevel spurring in the thoracolumbar spine redemonstrated. IMPRESSION: As above. [facility], , 09/14/2024 6:25 AM
[2024-09-14] MEDS ORDERED: droPERidol 2.5 MG/ML VIAL IVP ONE (06:38)
[2024-09-14] MEDS ORDERED: HYDROmorphone 0.5 MG/0.5 ML SYRINGE IVP PRN (06:38)
[2024-09-14] MEDS ORDERED: LIDOCAINE 1% (10MG/ML) FOR IV START INTRADERMA PRN (06:38)
[2024-09-14] MEDS ORDERED: DEXAMETHASONE SOD PHOSPHATE 4 MG/ML 1 ML VIAL IV ONE (06:38)
[2024-09-14] MEDS ORDERED: LACTATED RINGERS 1,000 ML IV SCH (06:38)
[2024-09-14] MEDS ORDERED: ONDANSETRON 4 MG/2 ML VIAL IVP ONE (06:38)
[2024-09-14 06:50] LABS: Glucose,Whole Blood 111 mg/dL (70-110)
[2024-09-14] MEDS: ONDANSETRON 4 MG/2 ML VIAL IVP ONE (06:58)
[2024-09-14] MEDS: SCOPOLAMINE 1 MG/72 HR PATCH TRANSDERM ONE (06:58)
[2024-09-14] MEDS: LACTATED RINGERS 1,000 ML IV ONE (06:58)
[2024-09-14] MEDS: DEXAMETHASONE SOD PHOSPHATE 4 MG/ML 1 ML VIAL IVP ONE (06:58)
[2024-09-14] MEDS ORDERED: PHENYLEPHRINE-0.9% NACL SYG 1,000 MCG/10 ML SYRINGE ONE (07:21)
[2024-09-14] MEDS ORDERED: MIDAZOLAM 2 MG/2 ML VIAL ONE (07:21)
[2024-09-14] MEDS ORDERED: fentaNYL (PF) 50 MCG/ML 2 ML AMP ONE (07:21)
[2024-09-14] MEDS ORDERED: PROPOFOL 10 MG/ML 20 ML VIAL IV ONE (07:21)
[2024-09-14] MEDS ORDERED: LIDOCAINE 1% INJ 10MG/ML (20 ML MDV) ONE (07:21)
[2024-09-14] MEDS ORDERED: SUCCINYLCHOLINE CHLORIDE 200 MG/10 ML VIAL IV ONE (07:21)
[2024-09-14] MEDS: ceFAZolin 2 GM in DEXTROSE 5% IN WATER 50 ML IVPB PRN (07:26)
--- NOTE | 2024-09-14 08:34 | P.OP ---
Date of Procedure: 09/14/24 Preoperative Diagnosis: Right renal stone Postoperative Diagnosis: Same Procedure(s) Performed: Right ureterorenoscopy with laser lithotripsy and stone basketing Anesthesia: LIZY Surgeon: Wyatt Villanueva Estimated Blood Loss (ml): 0 Pathology: other (Stone) Condition: stable Disposition: PACU Indications for Procedure: The patient is 64 has a symptomatic 11 mm right lower pole kidney stone. He has been given treatment options. He comes for right ureteroscopy and laser lithotripsy Description of Procedure: Patient brought to the operating suite. Given a general anesthetic. Placed in lithotomy position with a sterile prep and drape. Cystoscopy with a 21 [place] sheath and Foroblique lens identifies a normal anterior urethra. The prostatic urethra was nonobstructing. The bladder wall is unremarkable throughout. Both ureteral orifices are normal. The right ureteral orifice is identified and intubated with an 035 wire passed up into the kidney. The cystoscope was removed. Over the wires and passed an 11-13 [place] reentry sheath. The inner sheath was removed. Through the outer sheath a flexible ureteroscope was passed into the kidney and the stone is identified. With a 200 m laser probe the stone was broken into very tiny pieces. The largest of which are stone basketed and sent to pathology. At the end of the procedure I looked throughout the collecting system there are no remaining significant fragments or stones. I do pullout ureteroscopy and there is not enough swelling to leave a stent. There are no remaining fragments. The bladder is drained the patient is awakened and returned to recovery in good condition. Blood loss was negligible. He will be discharged home upon recovery.
--- NOTE | 2024-09-14 08:35 | FL ---
Fluoroscopy INDICATION: Pain FINDINGS: Fluoroscopy time: 15.4 seconds. Total dose area product (DAP) in uGy*m?, mGy*cm? (or similar): 2.7 x 5.9 Images obtained: 3. Images document stent placement IMPRESSION: 1. Documentation of fluoroscopy. [facility], , 09/14/2024 8:33 AM
[2024-09-14 08:39] VITALS: TEMP 97.1
[2024-09-14] MEDS: HYDROmorphone 0.5 MG/0.5 ML SYRINGE IVP ONE ×4 (08:45→09:37)
[2024-09-14] MEDS: ACETAMINOPHEN IV (For NPO) 1,000 MG/100 ML VIAL IVPB ONE (09:34)
[2024-09-14 09:57] LABS: Glucose,Whole Blood 156 mg/dL (70-110)
[2024-09-14 10:08] VITALS: RESP 16
[2024-09-14] MEDS: HYDROcodone/APAP 7.5-325MG 1 EACH TAB PO ONE (10:29)
[2024-09-14 11:17] VITALS: BP 155/83; PULSE 65
== END 2024-09-14 11:32 | disposition home or self-care (01) ==
LOC: OR 05:46
PROVIDERS: ATTEND Urology
DX: N20.0 Calculus of kidney (principal); I48.91 Unspecified atrial fibrillation; I49.3 Ventricular premature depolarization; J45.909 Unspecified asthma, uncomplicated; I10 Essential (primary) hypertension; E78.5 Hyperlipidemia, unspecified; E11.9 Type 2 diabetes mellitus without complications; G47.33 Obstructive sleep apnea (adult) (pediatric); M19.90 Unspecified osteoarthritis, unspecified site; Z98.890 Other specified postprocedural states; Z96.651 Presence of right artificial knee joint; Z99.89 Dependence on other enabling machines and devices; Z89.511 Acquired absence of right leg below knee; Z90.49 Acquired absence of other specified parts of digestive tract; Z88.2 Allergy status to sulfonamides; Z88.1 Allergy status to other antibiotic agents; Z79.01 Long term (current) use of anticoagulants; Z79.51 Long term (current) use of inhaled steroids; Z79.84 Long term (current) use of oral hypoglycemic drugs; Z79.899 Other long term (current) drug therapy
CPT/HCPCS: 82365; 74018; 52353; C1769; J2250; J0330; J1100; J0690; J2405; J2003; J3010; J0131; J2704; J1171; J2371